=== PATIENT | female | born 1960 | race Caucasian/White ===

== ENCOUNTER → 2016-12-03 | Outpatient (CLI) | payer BC ==
--- NOTE | 2016-12-03 08:12 | REPMRS ---
Patient History The patient states she has not had a clinical breast exam in over a year. Family history of breast cancer in maternal aunt under age 50. Digital Mammo Screening Bilat: December 03, 2016 - Exam #: [id number] Bilateral CC and MLO view(s) were taken. Technologist: Marleny Reyna, Technologist No prior studies available for comparison. FINDINGS: There are scattered fibroglandular densities. There is no evidence of dominant mass, architectural distortion, or clustered microcalcification typical of malignancy. ASSESSMENT: BI-RADS/ACR category 1 mammogram. Negative. Recommendation Routine screening mammogram of both breasts in 1 year (for women over age 40). This mammogram was interpreted with the aid of an FDA-approved computer-aided dectection system. Electronically Signed By: Phillip Shukla MD 12/03/16 0811
[2016-12-03 08:22] LABS: ALBUMIN 3.7 GM/DL (3.2-5.2); ALBUMIN/GLOBULIN RATIO 0.93 (1.00-1.93); ALKALINE PHOSPHATASE 100 U/L (45-117); ALT/SGPT 22 U/L (12-78); ANION GAP 6 MEQ/L (8-16); AST/SGOT 14 U/L (15-37); BILIRUBIN,TOTAL 0.3 MG/DL (0.2-1.0); BLOOD UREA NITROGEN 23 MG/DL (7-18); CALCIUM LEVEL 9.1 MG/DL (8.5-10.1); CARBON DIOXIDE LEVEL 29 MEQ/L (21-32); CHLORIDE LEVEL 105 MEQ/L (98-107); CHOLESTEROL LEVEL 244 MG/DL (<200); CREATININE FOR GFR 0.84 MG/DL (0.55-1.02); GLOMERULAR FILTRATION RATE > 60.0 (>51); GLUCOSE, FASTING 86 MG/DL (70-105); POTASSIUM SERUM 4.5 MEQ/L (3.5-5.1); SODIUM LEVEL 140 MEQ/L (136-145); TOTAL PROTEIN 7.7 GM/DL (6.4-8.2); TRIGLYCERIDES LEVEL 93 MG/DL (<150)
== END ==
LOC: M RAD 07:35
PROVIDERS: ATTEND Family Medicine Addiction Medicine
DX: Z12.31 Encounter for screening mammogram for malignant neoplasm of breast (principal); I10 Essential (primary) hypertension
CPT/HCPCS: 36415; 80053; 80061; 83036; G0202

== ENCOUNTER 2016-12-24 15:07 | Emergency (ER) | payer OTHER, BC ==
[~2016-12-24] VITALS: Ht 157.5 cm; Wt 98.4 kg
[2016-12-24] MEDS ORDERED: MELO15TA4 PO (15:19)
[2016-12-24] MEDS ORDERED: CYCL10TA PO (15:19)
[2016-12-24] MEDS ORDERED: LISI-538 (15:19)
[2016-12-24] MEDS ORDERED: XANA0.25 PO (15:19)
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
[2016-12-24] MEDS ORDERED: PERCOCET 5MG/325MG TAB PO ONE (17:45)
[2016-12-24] MEDS ORDERED: LISINOPRIL 20 MG TAB PO ONE (18:15)
[2016-12-24 18:46] VITALS: BP 162/104
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
[2016-12-24] MEDS ORDERED: OXYCODONE/APAP 5MG/325MG(BULK FOR ED) 1 TABLET PO ONE (19:45)
[2016-12-24 19:50] VITALS: BP 121/63
[2016-12-24] MEDS ORDERED: PERC5TAB6 PO (19:55)
--- NOTE | 2016-12-25 16:57 | ED PDOC ---
Post-Departure Follow-Up michael cespedes faxed formal report of ct ls spine for fu Raul John MD Dec 25, 2016 16:57
== END 2016-12-24 20:15 | disposition home or self-care (01) ==
LOC: M ED 16:32
DX: S80.02XA Contusion of left knee, initial encounter (principal); V49.50XA Passenger injured in collision with unspecified motor vehicles in traffic accident, initial encounter; Y92.410 Unspecified street and highway as the place of occurrence of the external cause; Y93.89 Activity, other specified; Y99.9 Unspecified external cause status; M51.37 Other intervertebral disc degeneration, lumbosacral region; M25.762 Osteophyte, left knee; I10 Essential (primary) hypertension; R01.1 Cardiac murmur, unspecified; E78.5 Hyperlipidemia, unspecified; G47.30 Sleep apnea, unspecified; G40.909 Epilepsy, unspecified, not intractable, without status epilepticus; Z79.899 Other long term (current) drug therapy

== ENCOUNTER → 2017-01-23 | Outpatient (CLI) | payer OTHER, BC ==
[~2017-01-23] MED LIST: CYCL10TA PO; LISI-538; MELO15TA4 PO; PERC5TAB12 PO; XANA0.25 PO
--- NOTE | 2017-01-23 12:27 | REP ---
CERVICAL SPINE, THREE VIEWS: HISTORY: Cervicalgia. There is no acute fracture. The C3-4 through C6-7 intervertebral discs are decreased in height consistent with disc degeneration. Osteophytes are present on C3 through C7. There are 2 mm of anterior subluxation of C2 on C3 through C4 on C5. IMPRESSION: Degenerative change as described above. Signed by Kobe Ragsdale MD 01/23/2017 12:49 P
== END ==
LOC: M RAD 11:15
PROVIDERS: ATTEND Family Medicine Addiction Medicine
DX: M54.2 Cervicalgia (principal); M50.30 Other cervical disc degeneration, unspecified cervical region

== ENCOUNTER → 2017-03-21 | Outpatient (CLI) | payer OTHER, BC ==
--- NOTE | 2017-03-21 17:24 | REP ---
MRI CERVICAL SPINE WITHOUT CONTRAST: HISTORY: Neck pain. A disc bulge is present at the C3-4 level. There is minimal effacement of the thecal sac without spinal cord compression. Uncinate process hypertrophy is present on the right. This produces mild narrowing of the right C3 neural foramen. The left C3 neural foramen is patent. A disc bulge with associated osteophyte formation is present at the C4-5 level. There is moderate effacement of the thecal sac without spinal cord compression. Bilateral uncinate process hypertrophy is present. This produces moderate narrowing of the C4 neural foramina. A disc bulge with associated osteophyte formation is present at the C5-6 level. There is moderate effacement of the thecal sac without spinal cord compression. Bilateral uncinate process hypertrophy is present. This produces moderate narrowing of the C5 neural foramina. A disc bulge with associated osteophyte formation is present at the C6-7 level. There is moderate effacement of the thecal sac without spinal cord compression. Bilateral uncinate process hypertrophy is present. This produces moderate narrowing of the C6 neural foramina. A disc bulge is present at the C7-T1 level. There is minimal effacement of the thecal sac without spinal cord compression. Uncinate process hypertrophy is present on the left. This produces minimal narrowing of the left C7 neural foramen. The right C7 neural foramen is patent. Disc bulges are present at the C2-3 and T3-4 levels. There is minimal effacement of the thecal sac without spinal cord compression. The neural foramina are patent on sagittal images. There is no other disc bulge or herniation. The remaining neural foramina are patent. The spinal cord is normal in signal intensity. The C4-5 through C6-7 intervertebral discs are decreased in height consistent with disc degeneration. Increased signal intensity on T2-weighted images is present in the endplates of the C4 through C7 vertebral bodies. This represents degenerative change. IMPRESSION: There is cervical spondylosis at the C3-4 through C7-T1 levels without spinal cord compression. Signed by Kobe Ragsdale MD 03/25/2017 08:10 A
--- NOTE | 2017-03-21 17:33 | REP ---
MRI LUMBAR SPINE WITHOUT CONTRAST: HISTORY: Back pain. COMPARISON: 08/14/2015 Decreased signal intensity on T2-weighted images is present in the L2-3 through L5-S1 intervertebral discs. The L3-4 through L5-S1 intervertebral discs are decreased in height. These findings are consistent with disc degeneration. There is no disc bulge or herniation at the L1-2 level. The L1 nerves exit the neural foramina without compression. A diffuse disc bulge is present at the L2-3 level. There is minimal compression of the thecal sac. The L2 nerves exit the neural foramina without compression. A diffuse disc bulge and small central disc protrusion are present at the L3-4 level. There is hypertrophy of the ligamenta flava and posterior articulating facets. These findings produce mild central canal stenosis. The L3 nerves exit the neural foramina without compression. A diffuse disc bulge is present at the L4-5 level. There is hypertrophy of the ligamenta flava and posterior articulating facets. These findings produce minimal central canal stenosis. The L4 nerves exit the neural foramina without compression. A diffuse disc bulge is present at the L5-S1 level. This abuts the S1 nerves. There is no thecal sac compression. There is hypertrophy of the posterior articulating facets. The L5 nerves exit the neural foramina without compression. The conus medullaris is normal in appearance terminating at the level of the L1-2 intervertebral disc. A hemangioma is present in the L2 vertebral body. Increased signal intensity on T2-weighted images is present in the endplates of the L5 and S1 vertebral bodies. This represents degenerative change. IMPRESSION: 1. Diffuse disc bulge at the L2-3 level with minimal thecal sac compression. This is a new finding. 2. Mild central canal stenosis at the L3-4 level secondary to disc bulge, disc protrusion, ligamentous and facet hypertrophy. There has been progression of the canal stenosis. 3. Minimal central canal stenosis at the L4-5 level secondary to disc bulge, ligamentous and facet hypertrophy. 4. Diffuse disc bulge at the L5-S1 level. This abuts the S1 nerves. There is no other significant change. Signed by Kobe Ragsdale MD 03/25/2017 08:11 A
== END ==
LOC: M RAD 10:01
PROVIDERS: ATTEND Family Medicine Addiction Medicine
DX: M51.26 Other intervertebral disc displacement, lumbar region (principal); M48.06 Spinal stenosis, lumbar region; M47.812 Spondylosis without myelopathy or radiculopathy, cervical region; M50.21 Other cervical disc displacement, high cervical region; M51.24 Other intervertebral disc displacement, thoracic region

== ENCOUNTER → 2017-04-18 | Outpatient (CLI) | payer OTHER ==
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
== END ==
LOC: M PAIN 13:15
PROVIDERS: ATTEND Nurse Practitioner Family
DX: G89.29 Other chronic pain (principal); M54.2 Cervicalgia; M79.1 Myalgia; E78.00 Pure hypercholesterolemia, unspecified; I10 Essential (primary) hypertension; G43.909 Migraine, unspecified, not intractable, without status migrainosus; F32.9 Major depressive disorder, single episode, unspecified; F41.9 Anxiety disorder, unspecified; G47.30 Sleep apnea, unspecified; Z79.899 Other long term (current) drug therapy

== ENCOUNTER → 2017-05-12 | Outpatient (CLI) | payer OTHER ==
[~2017-05-12] MED LIST changes: +BUPIVACAINE HCL 0.25% 10 ML VIAL As Ordered ONE; +BUPIVACAINE HCL 0.25% 30 ML VIAL As Ordered ONE; +TRIAMCINOLONE ACETONIDE SUSP 40 MG/ML VIAL (J3301) As Ordered ONE; +diazePAM 5 MG TAB As Ordered ONE; +oxyCODONE 5MG TAB As Ordered ONE
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
== END ==
LOC: M PAIN 14:30
PROVIDERS: ATTEND Anesthesiology
DX: G89.29 Other chronic pain (principal); M54.2 Cervicalgia; M54.5 Low back pain; M79.1 Myalgia; E78.00 Pure hypercholesterolemia, unspecified; I10 Essential (primary) hypertension; F32.9 Major depressive disorder, single episode, unspecified; F41.9 Anxiety disorder, unspecified; G47.30 Sleep apnea, unspecified; Z79.899 Other long term (current) drug therapy
CPT/HCPCS: 20553; J3301

== ENCOUNTER → 2017-05-28 | Outpatient (CLI) | payer OTHER ==
[~2017-05-28] MED LIST changes: -BUPIVACAINE HCL 0.25% 10 ML VIAL As Ordered ONE; -BUPIVACAINE HCL 0.25% 30 ML VIAL As Ordered ONE; -TRIAMCINOLONE ACETONIDE SUSP 40 MG/ML VIAL (J3301) As Ordered ONE; -diazePAM 5 MG TAB As Ordered ONE; -oxyCODONE 5MG TAB As Ordered ONE
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
== END ==
LOC: M PAIN 15:15
PROVIDERS: ATTEND Nurse Practitioner Family
DX: M79.1 Myalgia (principal); M54.2 Cervicalgia; I10 Essential (primary) hypertension; E78.00 Pure hypercholesterolemia, unspecified; Z79.899 Other long term (current) drug therapy

== ENCOUNTER → 2017-06-19 | Outpatient (CLI) | payer OTHER ==
[~2017-06-19] MED LIST changes: +BUPIVACAINE HCL 0.25% 10 ML VIAL As Ordered ONE; +BUPIVACAINE HCL 0.25% 30 ML VIAL As Ordered ONE; +TRIAMCINOLONE ACETONIDE SUSP 40 MG/ML VIAL (J3301) As Ordered ONE; +diazePAM 5 MG TAB As Ordered ONE; +oxyCODONE 5MG TAB As Ordered ONE
--- NOTE | 2017-07-02 00:26 | ECWPNPC ---
PATIENT NAME: ALVARO GARCIA : 1960 GENDER: FEMALE VISIT DATE: 06/19/2017 DISCHARGE DATE: 06/19/17 1504 VISIT LOCKED DATE TIME: PHYSICIAN: JAZZMINE CASTILLO RESOURCE: JAZZMINE CASTILLO REASON FOR APPOINTMENT 1. NO FAULT, TPI NECK/LEFT HISTORY OF PRESENT ILLNESS HISTORY OF PRESENT ILLNESS: PAIN THE PATIENT DESCRIBES THE PAIN... FALL RISK SCREENING: SCREENING :NO FALLS IN THE PAST YEAR CURRENT MEDICATIONS TAKING FLEXERIL 10 MG ORALLY TWICE DAILY NEEDED, NOTES: > 1 MONTH AGO TAKING MELOXICAM 15 MG TABLET 1 TABLET ORALLY ONCE A DAY, NOTES: 06/19/17 0800 TAKING XANAX 0.25 MG TABLET 1 TABLET ORALLY THREE TIMES DAILY NEEDED, NOTES: > 1 MONTH AGO TAKING BUTALBITAL-ACETAMINOPHEN 50-325 MG TABLET 1 TABLET NEEDED ORALLY EVERY 4 HRS, NOTES: > 3 MONTHS TAKING SIMVASTATIN 20 MG TABLET 1 TABLET ORALLY ONCE A DAY, NOTES: 06/19/17 0800 TAKING LISINOPRIL-HYDROCHLOROTHIAZIDE 20-25 MG TABLET 1 TABLET ORALLY ONCE A DAY, NOTES: 06/19/17 0800 MEDICATION LIST REVIEWED AND RECONCILED WITH THE PATIENT PAST MEDICAL HISTORY ARTHRITIS BACK PAIN HIGH CHOLESTEROL HTN MIGRAINES DEPRESSION ANXIETY SLEEP APNEA, USES CPAP ALLERGIES N.K.D.A. REVIEW OF SYSTEMS REVIEWED BY: PROVIDER: . CONSTITUTIONAL: ANY CHANGE IN YOUR MEDICAL CONDITION? NO . CHILLS NO . FEVER NO . INFECTION: DO YOU HAVE NEW INFECTIONS? NO . DO YOU HAVE HISTORY OF MRSA? NO . MUSCULOSKELETAL: ANY NEW PATTERNS OF PAIN OR NUMBNESS? NO . GASTROENTEROLOGY: ANY NEW CHANGE IN BOWEL CONTROL? NO . GENITOURINARY: ANY NEW CHANGE IN BLADDER CONTROL? NO . IS THERE A CHANCE YOU COULD BE ? NO . HEMATOLOGY/LYMPH: DO YOU TAKE ANY BLOOD THINNERS? (FOR EXAMPLE- COUMADIN, PLAVIX, AGGRENOX, PLATEL, PRADAXA, OR XARELTO) NO . WHEN WAS YOUR LAST DOSE? DATE: TIME: . NEUROLOGY: HAVE YOU FALLEN IN THE PAST 6 MONTHS? NO . ANY NEW EXTREMITY NUMBNESS OR WEAKNESS? NO . CARDIOLOGY: DO YOU HAVE A PACEMAKER OR DEFIBRILLATOR? NO . RESPIRATORY: HAVE YOU BEEN SICK IN THE PAST WEEK? NO . FEVER NO . FLU LIKE SYMPTOMS? NO . COUGH NO . INTEGUMENTARY: DO YOU HAVE ANY RASHES OR OPEN SORES? NO . ALLERGIC/IMMUNO: ARE YOU ALLERGIC TO SHELLFISH OR IV DYE? NO . ANY NEW ALLERGIES? NO . PSYCHIATRIC: DO YOU HAVE THOUGHTS OF HURTING YOURSELF OR SOMEONE ELSE? NO . ARE YOU ABUSED, NEGLECTED, OR IN AN UNSAFE ENVIRONMENT? NO . ENDOCRINOLOGY: ARE YOU DIABETIC? NO . OTHER: DO YOU NEED ANY PRESCRIPTIONS? NO . IF YES, PLEASE LIST: ____ . ANY NEW PROBLEMS WITH YOUR MEDICATIONS? NO . WHEN DID YOU LAST EAT? ____06/19/17 1200 CHICKEN . WHEN DID YOU LAST DRINK? ____06/19/17 1200 . WHAT DID YOU LAST DRINK? ____CLEAR SODA . NAME OF PERSON DRIVING YOU HOME? ____RALPH . DO YOU HAVE ANY OTHER QUESTIONS OR CONCERNS NO . VITAL SIGNS WT 227 LBS, HT 62 IN, BMI 41.51 INDEX, BP 114/75 MM HG, HR 73 /MIN, RR 16 /MIN, TEMP 97.9 F, OXYGEN SAT % 95%, SAFE IN ENV? (Y/N) YES, NA INITIALS ME 13:56, REVIEWED BY: ASSESSMENTS MYALGIA - M79.1 (PRIMARY) PROCEDURES PN TRIGGER POINT INJECTION WITH STEROIDS PRE PROCEDURE DIAGNOSIS 1. MYALGIA 2. PAIN AT BILATERAL NECK AREA AND BILATERAL LOWER BACK AREA POST PROCEDURE DIAGNOSIS 1. MYALGIA 2. PAIN AT BILATERAL NECK AREA AND BILATERAL LOWER BACK AREA PROCEDURE TRIGGER POINT INJECTION AT BILATERAL NECK AREA AND BILATERAL LOWER BACK AREA SURGEON DR. JAZZMINE CASTILLO GRAIN MERCHANDISER NONE ANESTHESIA LOCAL PRE PROCEDURE NOTE THE PATIENT HAS A HISTORY OF CHRONIC PAIN AT THE RIGHT AND LEFT NECK AREA AND RIGHT AND LEFT LOWER BACK AREA. I EVALUATE THE PATIENT AND REVIEWED THE CHART. THERE IS EVIDENCE OF BANDS OF TISSUE WITH RESTRICTION OF MOVEMENT AND PRESENCE OF TRIGGER POINT AT THE AFFECTED AREA. I WENT OVER THE RISKS, ALTERNATIVES, AND BENEFITS ASSOCIATED WITH THIS PROCEDURE. THE PATIENT WOULD LIKE TO PROCEED AND GIVE CONSENT TO PERFORMED THE PROCEDURE. THE PATIENT DENIES UNEXPLAINABLE WEIGHT LOSS, FEVER, CHILLS, OR NEW CHANGES IN URINARY OR BOWEL CONTROL DESCRIPTION OF PROCEDURE THE PATIENT WAS BROUGHT TO THE PROCEDURE ROOM AND PLACED IN THE SITTING POSITION. THE AREA WAS CLEANED WITH ALCOHOL. THE PROCEDURE WAS DONE USING ASEPTIC STERILE TECHNIQUE. I CHECKED LATERALITY AND THE LEVEL WHERE THE PROCEDURE WAS GOING TO BE PERFORMED WITH THE PATIENT AND THE SUPPORTING STAFF AT THE MOMENT OF THE TIME OUT IN THE PROCEDURE ROOM. USING A 25-GAUGE NEEDLE, TRIGGER POINTS WERE INJECTED AT THE RIGHT AND LEFT NECK AREA AND RIGHT AND LEFT LOWER BACK AREA WITH A TOTAL OF 40 ML OF BUPIVACAINE 0.25% AND KENALOG 40 MG. THERE WAS NO EVIDENCE OF BLOOD, PARESTHESIA OR CEREBROSPINAL FLUID DURING THE PROCEDURE. THE PATIENT WAS SENT TO THE RECOVERY ROOM. THE PATIENT WAS MOVING THE EXTREMITIES AND DOING WELL. THERE WAS NO COMPLICATION DURING THE PROCEDURE POST PROCEDURE NOTE THE PATIENT WILL BE SEEN IN A FOLLOW UP IN THE NEXT FEW WEEKS. INSTRUCTIONS WERE GIVEN, QUESTIONS WERE ANSWERED, AND THE PATIENT EXPRESSED UNDERSTANDING AND AGREES WITH THE PLAN. I, ROBERT CHA, DOCUMENTED THE ABOVE INFORMATION ACTING A SCRIBE FOR DR. CASTILLO. I HAVE REVIEWED THE ABOVE DOCUMENT, WRITTEN BY ROBERT ROMEO AND I VERIFY THAT IT IS ACCURATE. PROCEDURE CODES 61019 INJECT TRIGGER POINTS 3/> DISPOSITION & COMMUNICATION FOLLOW UP 3 WEEKS ELECTRONICALLY SIGNED BY JAZZMINE CASTILLO MD ON 07/01/2017 AT 09:48 PM EST DISCLAIMER : THIS IS A VISIT SUMMARY EXTRACTED FROM THE [employer] CHART. IT IS NOT A COPY OF THE [employer] PROGRESS NOTE. KAMRAN
== END ==
LOC: M PAIN 13:45
PROVIDERS: ATTEND Anesthesiology
DX: G89.29 Other chronic pain (principal); M54.2 Cervicalgia; M54.5 Low back pain; M79.1 Myalgia; I10 Essential (primary) hypertension; G43.909 Migraine, unspecified, not intractable, without status migrainosus; F32.9 Major depressive disorder, single episode, unspecified; F41.9 Anxiety disorder, unspecified; G47.30 Sleep apnea, unspecified; Z79.899 Other long term (current) drug therapy
CPT/HCPCS: 20553; J3301

== ENCOUNTER → 2017-07-03 | Outpatient (REF) | payer BC ==
[~2017-07-03] MED LIST changes: -BUPIVACAINE HCL 0.25% 10 ML VIAL As Ordered ONE; -BUPIVACAINE HCL 0.25% 30 ML VIAL As Ordered ONE; -TRIAMCINOLONE ACETONIDE SUSP 40 MG/ML VIAL (J3301) As Ordered ONE; -diazePAM 5 MG TAB As Ordered ONE; -oxyCODONE 5MG TAB As Ordered ONE
[2017-07-03 15:05] LABS: ALBUMIN 3.5 GM/DL (3.2-5.2); ALBUMIN/GLOBULIN RATIO 0.92 (1.00-1.93); ALKALINE PHOSPHATASE 92 U/L (45-117); ALT/SGPT 24 U/L (12-78); ANION GAP 6 MEQ/L (8-16); AST/SGOT 16 U/L (7-37); BILIRUBIN,TOTAL 0.5 MG/DL (0.2-1.0); BLOOD UREA NITROGEN 20 MG/DL (7-18); CALCIUM LEVEL 8.7 MG/DL (8.5-10.1); CARBON DIOXIDE LEVEL 29 MEQ/L (21-32); CHLORIDE LEVEL 105 MEQ/L (98-107); CHOLESTEROL LEVEL 187 MG/DL (<200); CREATININE FOR GFR 0.71 MG/DL (0.55-1.02); GLOMERULAR FILTRATION RATE > 60.0 (>51); GLUCOSE, FASTING 81 MG/DL (70-105); SODIUM LEVEL 140 MEQ/L (136-145); TOTAL PROTEIN 7.3 GM/DL (6.4-8.2); TRIGLYCERIDES LEVEL 84 MG/DL (<150)
== END ==
LOC: M LAB REF 14:02
PROVIDERS: ATTEND Family Medicine Addiction Medicine
DX: E78.5 Hyperlipidemia, unspecified (principal); I10 Essential (primary) hypertension

== ENCOUNTER → 2017-07-17 | Outpatient (REF) | payer BC ==
[2017-07-17 14:11] LABS: FREE T4 1.04 NG/DL (0.76-1.46)
== END ==
LOC: M LAB REF 13:11
DX: E03.8 Other specified hypothyroidism (principal)
CPT/HCPCS: 84443

== ENCOUNTER → 2017-08-04 | Outpatient (CLI) | payer OTHER | LOC: M PAIN 14:15 | DX: M47.812 Spondylosis without myelopathy or radiculopathy, cervical region (principal); M79.1 Myalgia; M19.90 Unspecified osteoarthritis, unspecified site; E78.00 Pure hypercholesterolemia, unspecified; I10 Essential (primary) hypertension; G43.909 Migraine, unspecified, not intractable, without status migrainosus; F32.9 Major depressive disorder, single episode, unspecified; F41.9 Anxiety disorder, unspecified; G47.30 Sleep apnea, unspecified; Z79.899 Other long term (current) drug therapy | CPT/HCPCS: G0463 ==

== ENCOUNTER → 2017-09-01 | Outpatient (CLI) | payer OTHER ==
[~2017-09-01] MED LIST changes: -CYCL10TA PO; +ISOVUE-M 300 61% 15ML VIAL (Q9967) As Ordered; +LIDOCAINE 1% SDV INJ 30 ML VIAL As Ordered; -LISI-538; -MELO15TA4 PO; -PERC5TAB12 PO; -XANA0.25 PO; +diazePAM 5 MG TAB As Ordered; +methylPREDNISolone SUSP 40 MG/ML (DEPO-medrol) VIAL (J1030) As Ordered; +oxyCODONE 5MG TAB As Ordered
== END ==
LOC: M PAIN 10:15
DX: G89.29 Other chronic pain (principal); M50.13 Cervical disc disorder with radiculopathy, cervicothoracic region; I10 Essential (primary) hypertension; F41.9 Anxiety disorder, unspecified; F32.9 Major depressive disorder, single episode, unspecified; Z79.899 Other long term (current) drug therapy
CPT/HCPCS: J1030

== ENCOUNTER 2017-10-31 16:53 | Emergency (ER) | payer BC, OTHER ==
[2017-10-31] MEDS: NS 1,000 ML IV (19:00)
[2017-10-31 19:45] LABS: BASO # 0.1 10^3/uL (0.0-0.2); BASO % 0.5 % (0.0-1.0); EOS # 0.2 10^3/uL (0.0-0.50); EOS % 1.2 % (0.0-3.0); HEMOGLOBIN 12.8 g/dl (12.0-15.5); IMMATURE GRANULOCYTE % 0.6 % (0-3.0); LYMPH # 3.2 10^3/uL (1.5-4.5); LYMPH % 18.9 % (24.0-44.0); MEAN CORPUSCULAR HEMOGLOBIN 30.5 pg (27.0-33.0); MEAN CORPUSCULAR HGB CONC 33.7 g/dl (32.0-36.5); MEAN CORPUSCULAR VOLUME 90.5 fl (80.0-96.0); MONO # 1.6 10^3/uL (0.0-0.8); MONO % 9.5 % (0.0-5.0); NEUTROPHILS # 11.9 10^3/uL (1.8-7.7); NEUTROPHILS % 69.3 % (36.0-66.0); PLATELET COUNT, AUTOMATED 473 10^3/uL (150-450); RED CELL DISTRIBUTION WIDTH 13.2 % (11.5-14.5); WHITE BLOOD COUNT 17.1 10^3/uL (4.0-10.0)
[2017-10-31 19:50] LABS: KETONE, URINE AUTO RFX NEGATIVE (NEGATIVE); MUCUS, URINE RFX SMALL (NEGATIVE); NITRITE, URINE AUTO RFX NEGATIVE (NEGATIVE); RBC, URINE AUTO RFX 8 /HPF (0-3); SPECIFIC GRAVITY UR AUTO RFX 1.014 (1.002-1.035); SQUAM EPITHELIAL CELL UR AURFX 2 /HPF (0-6)
[2017-10-31 19:56] LABS: INR 1.14; PROTHROMBIN TIME 14.8 SECONDS (12.4-14.5)
[2017-10-31 20:08] LABS: LACTIC ACID SEPSIS PROTOCOL 1.1 MMOL/L (0.4-2.0)
[2017-10-31 20:08] LABS: LEUKOCYTE ESTERASE UR AUTO RFX 3+ (NEGATIVE); WBC, URINE AUTO RFX 83 /HPF (0-3)
[2017-10-31 20:11] LABS: ALBUMIN 3.4 GM/DL (3.2-5.2); ALBUMIN/GLOBULIN RATIO 0.76 (1.00-1.93); ALKALINE PHOSPHATASE 103 U/L (45-117); ALT/SGPT 25 U/L (12-78); AMYLASE 44 U/L (25-115); ANION GAP 7 MEQ/L (8-16); AST/SGOT 18 U/L (7-37); BILIRUBIN,DIRECT 0.2 MG/DL (0.0-0.2); BILIRUBIN,TOTAL 0.5 MG/DL (0.2-1.0); BLOOD UREA NITROGEN 15 MG/DL (7-18); CALCIUM LEVEL 8.9 MG/DL (8.5-10.1); CARBON DIOXIDE LEVEL 31 MEQ/L (21-32); CHLORIDE LEVEL 98 MEQ/L (98-107); CREATININE FOR GFR 0.89 MG/DL (0.55-1.30); GLOMERULAR FILTRATION RATE > 60.0 (>51); GLUCOSE, FASTING 111 MG/DL (70-100); LIPASE 243 U/L (73-393); POTASSIUM SERUM 3.1 MEQ/L (3.5-5.1); SODIUM LEVEL 136 MEQ/L (136-145); TOTAL PROTEIN 7.9 GM/DL (6.4-8.2)
[2017-10-31] MEDS: GASTROGRAFIN SOLUTION 30ML PO ×2 (20:55→21:30)
[2017-10-31] MEDS ORDERED: ISOVUE-370 76% 100ML VIAL (Q9967) As Ordered (22:09)
[2017-10-31] MEDS: BACTRIM 160MG/800MG DS TAB PO (23:00)
== END 2017-10-31 23:04 | disposition home or self-care (01) ==
LOC: M ED 16:53
DX: N39.0 Urinary tract infection, site not specified (principal); Z98.84 Bariatric surgery status; R51 Headache; E78.00 Pure hypercholesterolemia, unspecified; F41.9 Anxiety disorder, unspecified; Z79.899 Other long term (current) drug therapy
CPT/HCPCS: Q9963

== ENCOUNTER → 2017-11-06 | Outpatient (CLI) | payer BC ==
[2017-11-06 11:13] LABS: BASO # 0.1 10^3/uL (0.0-0.2); BASO % 0.8 % (0.0-1.0); EOS # 0.4 10^3/uL (0.0-0.50); EOS % 5.3 % (0.0-3.0); HEMATOCRIT 40.1 % (36.0-47.0); HEMOGLOBIN 13.3 g/dl (12.0-15.5); IMMATURE GRANULOCYTE % 0.6 % (0-3.0); LYMPH # 1.8 10^3/uL (1.5-4.5); LYMPH % 21.5 % (24.0-44.0); MEAN CORPUSCULAR HEMOGLOBIN 29.9 pg (27.0-33.0); MEAN CORPUSCULAR HGB CONC 33.2 g/dl (32.0-36.5); MEAN CORPUSCULAR VOLUME 90.1 fl (80.0-96.0); MONO # 0.5 10^3/uL (0.0-0.8); MONO % 5.9 % (0.0-5.0); NEUTROPHILS # 5.4 10^3/uL (1.8-7.7); NEUTROPHILS % 65.9 % (36.0-66.0); PLATELET COUNT, AUTOMATED 554 10^3/uL (150-450); RED BLOOD COUNT 4.45 10^6/uL (4.00-5.40); RED CELL DISTRIBUTION WIDTH 13.1 % (11.5-14.5); WHITE BLOOD COUNT 8.3 10^3/uL (4.0-10.0)
[2017-11-06 11:13] LABS: HEMATOCRIT 40.1 % (36.0-47.0)
[2017-11-06 11:47] LABS: ALBUMIN 3.2 GM/DL (3.2-5.2); ALKALINE PHOSPHATASE 108 U/L (45-117); ALT/SGPT 30 U/L (12-78); ANION GAP 12 MEQ/L (8-16); AST/SGOT 20 U/L (7-37); BILIRUBIN,TOTAL 0.3 MG/DL (0.2-1.0); BLOOD UREA NITROGEN 26 MG/DL (7-18); CALCIUM LEVEL 9.2 MG/DL (8.5-10.1); CARBON DIOXIDE LEVEL 23 MEQ/L (21-32); CHLORIDE LEVEL 102 MEQ/L (98-107); CREATININE FOR GFR 1.09 MG/DL (0.55-1.30); FERRITIN 556 NG/ML (8-252); GLOMERULAR FILTRATION RATE 55.1 (>51); GLUCOSE, FASTING 96 MG/DL (70-100); IRON (FE) 51 UG/DL (50-170); MAGNESIUM LEVEL 2.2 MG/DL (1.8-2.4); PHOSPHORUS LEVEL 3.2 MG/DL (2.5-4.9); POTASSIUM SERUM 4.1 MEQ/L (3.5-5.1); SODIUM LEVEL 137 MEQ/L (136-145); TOTAL IRON BINDING CAPACITY 196 UG/DL (250-450); TOTAL PROTEIN 7.8 GM/DL (6.4-8.2)
[2017-11-06 12:27] LABS: ESTIMATED AVERAGE GLUCOSE 111 MG/DL (60-110); HEMOGLOBIN A1c 5.5 %
[2017-11-07 08:48] LABS: TOTAL 25(OH) VITAMIN D 25.2 NG/ML (30.0-100.0); VITAMIN B12 LEVEL 1104 PG/ML (247-911)
[2017-11-07 10:47] LABS: PRETREATED FOLATE FOR RBCFOL 17.2 NG/ML; RBC FOLATE 900.7 NG/ML (280-791)
[2017-11-10 14:12] LABS: VITAMIN B1 LEVEL WHOLE BLOOD 125.2 nmol/L (66.5-200.0)
== END ==
LOC: M LAB 10:06
DX: E55.9 Vitamin D deficiency, unspecified (principal); K91.2 Postsurgical malabsorption, not elsewhere classified; Z98.84 Bariatric surgery status
CPT/HCPCS: 83550

== ENCOUNTER → 2017-12-22 | Outpatient (CLI) | payer OTHER | LOC: M PAIN 15:15 | DX: M47.812 Spondylosis without myelopathy or radiculopathy, cervical region (principal); M79.1 Myalgia; M19.90 Unspecified osteoarthritis, unspecified site; E78.00 Pure hypercholesterolemia, unspecified; I10 Essential (primary) hypertension; G43.909 Migraine, unspecified, not intractable, without status migrainosus; F32.9 Major depressive disorder, single episode, unspecified; F41.9 Anxiety disorder, unspecified; G47.30 Sleep apnea, unspecified; Z79.899 Other long term (current) drug therapy; Z98.84 Bariatric surgery status | CPT/HCPCS: G0463 ==

== ENCOUNTER → 2018-03-02 | Outpatient (CLI) | payer BC | LOC: M PAIN 13:15 | DX: Z53.29 Procedure and treatment not carried out because of patient's decision for other reasons (principal) ==

== ENCOUNTER → 2018-03-19 | Outpatient (CLI) | payer BC | LOC: M PAIN 15:00 | DX: M54.2 Cervicalgia (principal); M79.1 Myalgia; M19.90 Unspecified osteoarthritis, unspecified site; E78.00 Pure hypercholesterolemia, unspecified; I10 Essential (primary) hypertension; G43.909 Migraine, unspecified, not intractable, without status migrainosus; F32.9 Major depressive disorder, single episode, unspecified; F41.9 Anxiety disorder, unspecified; G47.30 Sleep apnea, unspecified; Z79.899 Other long term (current) drug therapy; Z98.84 Bariatric surgery status | CPT/HCPCS: G0463 ==

== ENCOUNTER → 2018-04-06 | Outpatient (CLI) | payer BC ==
[~2018-04-06] MED LIST changes: +BUPIVACAINE HCL 0.25% 10 ML VIAL As Ordered; +BUPIVACAINE HCL 0.25% 30 ML VIAL As Ordered; -ISOVUE-M 300 61% 15ML VIAL (Q9967) As Ordered; -LIDOCAINE 1% SDV INJ 30 ML VIAL As Ordered; +TRIAMCINOLONE ACETONIDE SUSP 40 MG/ML VIAL (J3301) As Ordered; -methylPREDNISolone SUSP 40 MG/ML (DEPO-medrol) VIAL (J1030) As Ordered
== END ==
LOC: M PAIN 13:45
DX: M79.1 Myalgia (principal); E78.00 Pure hypercholesterolemia, unspecified; I10 Essential (primary) hypertension; G43.909 Migraine, unspecified, not intractable, without status migrainosus; F32.9 Major depressive disorder, single episode, unspecified; F41.9 Anxiety disorder, unspecified; G47.30 Sleep apnea, unspecified; Z79.891 Long term (current) use of opiate analgesic; Z79.899 Other long term (current) drug therapy; Z90.710 Acquired absence of both cervix and uterus; Z98.84 Bariatric surgery status
CPT/HCPCS: J3301

== ENCOUNTER → 2018-04-23 | Outpatient (CLI) | payer BC | LOC: M SLEEP HO 15:00 | DX: G47.33 Obstructive sleep apnea (adult) (pediatric) (principal) | CPT/HCPCS: G0399 ==

== ENCOUNTER → 2018-05-14 | Outpatient (CLI) | payer BC | LOC: M PAIN 09:30 | DX: M54.2 Cervicalgia (principal); M79.18 Myalgia, other site; M19.90 Unspecified osteoarthritis, unspecified site; E78.00 Pure hypercholesterolemia, unspecified; I10 Essential (primary) hypertension; G43.909 Migraine, unspecified, not intractable, without status migrainosus; F31.9 Bipolar disorder, unspecified; F41.9 Anxiety disorder, unspecified; G47.30 Sleep apnea, unspecified; Z79.899 Other long term (current) drug therapy; Z98.84 Bariatric surgery status | CPT/HCPCS: G0463 ==

== ENCOUNTER → 2018-05-20 | Outpatient (CLI) | payer BC ==
[2018-05-20 18:34] LABS: BASO # 0.1 10^3/uL (0.0-0.2); BASO % 0.6 % (0.0-1.0); EOS # 0.3 10^3/uL (0.0-0.50); EOS % 2.8 % (0.0-3.0); HEMATOCRIT 39.5 % (36.0-47.0); IMMATURE GRANULOCYTE % 0.5 % (0-3.0); LYMPH % 19.6 % (24.0-44.0); MEAN CORPUSCULAR HEMOGLOBIN 30.7 pg (27.0-33.0); MEAN CORPUSCULAR HGB CONC 32.9 g/dl (32.0-36.5); MEAN CORPUSCULAR VOLUME 93.2 fl (80.0-96.0); MONO # 0.7 10^3/uL (0.0-0.8); MONO % 6.5 % (0.0-5.0); NEUTROPHILS # 7.3 10^3/uL (1.8-7.7); PLATELET COUNT, AUTOMATED 340 10^3/uL (150-450); RED BLOOD COUNT 4.24 10^6/uL (4.00-5.40); RED CELL DISTRIBUTION WIDTH 16.2 % (11.5-14.5); WHITE BLOOD COUNT 10.4 10^3/uL (4.0-10.0)
[2018-05-20 18:39] LABS: ALBUMIN 3.9 GM/DL (3.2-5.2); ALBUMIN/GLOBULIN RATIO 1.18 (1.00-1.93); ALKALINE PHOSPHATASE 90 U/L (45-117); ALT/SGPT 19 U/L (12-78); ANION GAP 6 MEQ/L (8-16); AST/SGOT 17 U/L (7-37); BILIRUBIN,TOTAL 0.4 MG/DL (0.2-1.0); BLOOD UREA NITROGEN 21 MG/DL (7-18); CALCIUM LEVEL 9.3 MG/DL (8.5-10.1); CARBON DIOXIDE LEVEL 30 MEQ/L (21-32); CHLORIDE LEVEL 104 MEQ/L (98-107); CREATININE FOR GFR 0.73 MG/DL (0.55-1.30); FERRITIN 167 NG/ML (8-252); GLOMERULAR FILTRATION RATE > 60.0 (>51); GLUCOSE, FASTING 101 MG/DL (70-100); IRON (FE) 86 UG/DL (50-170); MAGNESIUM LEVEL 1.9 MG/DL (1.8-2.4); PERCENT SATURATION 29.1 % (13.2-45.0); PHOSPHORUS LEVEL 3.5 MG/DL (2.5-4.9); POTASSIUM SERUM 4.1 MEQ/L (3.5-5.1); SODIUM LEVEL 140 MEQ/L (136-145); TOTAL IRON BINDING CAPACITY 296 UG/DL (250-450); TOTAL PROTEIN 7.2 GM/DL (6.4-8.2)
[2018-05-20 18:41] LABS: ESTIMATED AVERAGE GLUCOSE 103 MG/DL (60-110); HEMOGLOBIN A1c 5.2 %
[2018-05-20 18:45] LABS: TOTAL 25(OH) VITAMIN D 22.6 NG/ML (30.0-100.0)
[2018-05-20 18:49] LABS: HEMATOCRIT 39.5 % (36.0-47.0)
[2018-05-22 10:25] LABS: PRETREATED FOLATE FOR RBCFOL 13.3 NG/ML; RBC FOLATE 707.1 NG/ML (280-791)
== END ==
LOC: M SMT 14:31
DX: K91.2 Postsurgical malabsorption, not elsewhere classified (principal); Z98.84 Bariatric surgery status; E55.9 Vitamin D deficiency, unspecified
CPT/HCPCS: 83550

== ENCOUNTER → 2018-05-31 | Outpatient (CLI) | payer BC | LOC: M SLEEP 19:54 | DX: G47.33 Obstructive sleep apnea (adult) (pediatric) (principal) | CPT/HCPCS: 95811 ==

== ENCOUNTER → 2018-06-09 | Outpatient (CLI) | payer BC ==
[~2018-06-09] MED LIST changes: -BUPIVACAINE HCL 0.25% 10 ML VIAL As Ordered
== END ==
LOC: M PAIN 12:45
DX: M79.18 Myalgia, other site (principal); M19.90 Unspecified osteoarthritis, unspecified site; E78.00 Pure hypercholesterolemia, unspecified; I10 Essential (primary) hypertension; G43.909 Migraine, unspecified, not intractable, without status migrainosus; F32.9 Major depressive disorder, single episode, unspecified; F41.9 Anxiety disorder, unspecified; G47.30 Sleep apnea, unspecified; Z79.899 Other long term (current) drug therapy
CPT/HCPCS: J3301

== ENCOUNTER → 2018-06-22 | Outpatient (CLI) | payer BC | LOC: M PAIN 14:45 | DX: M47.812 Spondylosis without myelopathy or radiculopathy, cervical region (principal); I10 Essential (primary) hypertension; G43.909 Migraine, unspecified, not intractable, without status migrainosus; E78.00 Pure hypercholesterolemia, unspecified; M19.90 Unspecified osteoarthritis, unspecified site; F32.9 Major depressive disorder, single episode, unspecified; F41.9 Anxiety disorder, unspecified; G47.30 Sleep apnea, unspecified; Z79.899 Other long term (current) drug therapy; Z98.84 Bariatric surgery status | CPT/HCPCS: G0463 ==

== ENCOUNTER → 2018-07-27 | Outpatient (CLI) | payer BC ==
[~2018-07-27] MED LIST changes: +BACT800T5 PO; -BUPIVACAINE HCL 0.25% 30 ML VIAL As Ordered; +BUPIVACAINE HCL 0.25% 30 ML VIAL As Ordered ONE; +CYCL10TA PO; +ISOVUE-M 300 61% 15ML VIAL (Q9967) As Ordered ONE; +LIDOCAINE 1% SDV INJ 30 ML VIAL As Ordered ONE; +LISI-538; +MELO15TA28 PO; +MULT1TAB10 PO; +PERC5TAB12 PO; -TRIAMCINOLONE ACETONIDE SUSP 40 MG/ML VIAL (J3301) As Ordered; +TRIAMCINOLONE ACETONIDE SUSP 40 MG/ML VIAL (J3301) As Ordered ONE; +VITA500064 PO; +XANA0.25 PO; -diazePAM 5 MG TAB As Ordered; +diazePAM 5 MG TAB As Ordered ONE; -oxyCODONE 5MG TAB As Ordered; +oxyCODONE 5MG TAB As Ordered ONE
--- NOTE | 2018-07-27 12:50 | REP ---
LIMITED CERVICAL SPINE SERIES: Two views. HISTORY: Cervical spine injection procedure for pain. 17 seconds of fluoroscopy time is reported. FINDINGS: A sequence of two last image hold fluoroscopically obtained spot radiographs of the cervical spine document various needle positions and contrast injections associated with cervical facet injection procedure. Electronically Signed by Manohar Shukla MD 07/27/2018 07:26 P
--- NOTE | 2018-08-12 01:27 | ECWPNPC ---
PATIENT NAME: ALVARO GARCIA : 1960 GENDER: FEMALE VISIT DATE: 07/27/2018 DISCHARGE DATE: 07/27/18 1027 VISIT LOCKED DATE TIME: PHYSICIAN: JAZZMINE CASTILLO MD RESOURCE: JAZZMINE CASTILLO MD REASON FOR APPOINTMENT 1. C3/4-C4/5 CERVICAL THERAPEUTIC FACET BLOCK BILAT HISTORY OF PRESENT ILLNESS HISTORY OF PRESENT ILLNESS: PAIN THE PATIENT DESCRIBES THE PAIN... FALL RISK SCREENING: SCREENING :NO FALLS IN THE PAST YEAR CURRENT MEDICATIONS TAKING SYNTHROID 25 MCG TABLET 1 TABLET ON AN EMPTY STOMACH IN THE MORNING ORALLY ONCE A DAY, NOTES: 07/26/18 0800 TAKING FLEXERIL 10 MG ORALLY TWICE DAILY NEEDED, NOTES: 07/26/17 1900 TAKING XANAX 0.25 MG TABLET 1 TABLET ORALLY THREE TIMES DAILY NEEDED, NOTES: 07/27/18 0600 TAKING BUTALBITAL-ACETAMINOPHEN 50-325 MG TABLET 1 TABLET NEEDED ORALLY EVERY 4 HRS, NOTES: 07/27/18 0800 TAKING SIMVASTATIN 20 MG TABLET 1 TABLET ORALLY ONCE A DAY, NOTES: 07/26/18 0800 TAKING CALCIUM 250 MG TABLET ORALLY , NOTES: 07/26/17 0800 TAKING HYDROCODONE-ACETAMINOPHEN 5-325 MG TABLET 1 TABLET NEEDED ORALLY EVERY 6 HRS MDD=3, NOTES: NONE IN >2 WEEKS TAKING TRAMADOL HCL 50 MG TABLET 1 TABLET NEEDED ORALLY Q8H PRN MDD3 #45 TAB SHOULD LAST 30 DAYS, NOTES: NONE IN >2 WEEKS TAKING B-12 + FOLIC ACID 2500-400 MCG TABLET DISINTEGRATING ORALLY , NOTES: 07/26/17 0800 TAKING MULTI COMPLETE - CAPSULE ORALLY , NOTES: 07/26/17 0800 MEDICATION LIST REVIEWED AND RECONCILED WITH THE PATIENT PAST MEDICAL HISTORY ARTHRITIS BACK PAIN HIGH CHOLESTEROL HTN MIGRAINES DEPRESSION ANXIETY SLEEP APNEA, USES CPAP ALLERGIES N.K.D.A. SURGICAL HISTORY HYSTERECTOMY 2004 GASTRIC SLEEVE SURGERY 09/2017 FAMILY HISTORY FATHER: 81 YRS, DIAGNOSED WITH HYPERTENSION MOTHER: , DIAGNOSED WITH CANCER SIBLINGS: IMMUNE DISEASE IN SISTER 1 BROTHER(S) , 4 SISTER(S) - HEALTHY. 2DAUGHTER(S) . DAD THIS . SOCIAL HISTORY GENERAL: TOBACCO USE ARE YOU A:NONSMOKER RECREATIONAL DRUG USE DRUG USE?NO CAFFEINE CAFFEINE USE?YES HOW OFTEN AND HOW MUCH? 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 MARITAL STATUS: .. OTHERS AT HOME: SIBLING. PAIN CLINIC PFS, CLERGY, PUBLIC HEALTH REFERRALS PFS REFERRAL NEEDED?NO CLERGY REFERRAL NEEDED?NO PUBLIC HEALTH REFERRAL NEEDED?NO HAS THE PATIENT BEEN EDUCATED REGARDING HIS/HER PLAN OF CARE?YES HAS THE PATIENT BEEN EDUCATED REGARDING PAIN, THE RISK FOR PAIN, THE IMPORTANCE OF EFFECTIVE PAIN MANAGEMENT, AND THE PAIN ASSESSMENT PROCESS?YES ADVANCE DIRECTIVE ADVANCE DIRECTIVE DISCUSSED WITH PATIENT:YES EVELYN WHITMORE SISTER REVIEWED NL [id number] WITH PT 07/27/18 0902 BV. HOSPITALIZATION/MAJOR DIAGNOSTIC PROCEDURE SYNCOPAL EPISODES 2013 REVIEW OF SYSTEMS REVIEWED BY: PROVIDER: . CONSTITUTIONAL: ANY CHANGE IN YOUR MEDICAL CONDITION? NO . CHILLS NO . FEVER NO . INFECTION: DO YOU HAVE NEW INFECTIONS? NO . DO YOU HAVE HISTORY OF MRSA? NO . MUSCULOSKELETAL: ANY NEW PATTERNS OF PAIN OR NUMBNESS? NO . GASTROENTEROLOGY: ANY NEW CHANGE IN BOWEL CONTROL? NO . GENITOURINARY: ANY NEW CHANGE IN BLADDER CONTROL? NO . IS THERE A CHANCE YOU COULD BE ? NO . HEMATOLOGY/LYMPH: DO YOU TAKE ANY BLOOD THINNERS? (FOR EXAMPLE- COUMADIN, PLAVIX, AGGRENOX, PLATEL, PRADAXA, OR XARELTO) NO . WHEN WAS YOUR LAST DOSE? DATE: TIME: . NEUROLOGY: HAVE YOU FALLEN IN THE PAST 6 MONTHS? NO . ANY NEW EXTREMITY NUMBNESS OR WEAKNESS? NO . CARDIOLOGY: DO YOU HAVE A PACEMAKER OR DEFIBRILLATOR? NO . RESPIRATORY: HAVE YOU BEEN SICK IN THE PAST WEEK? NO . FEVER NO . FLU LIKE SYMPTOMS? NO . COUGH NO . INTEGUMENTARY: DO YOU HAVE ANY RASHES OR OPEN SORES? NO . ALLERGIC/IMMUNO: ARE YOU ALLERGIC TO SHELLFISH OR IV DYE? NO . ANY NEW ALLERGIES? NO . PSYCHIATRIC: DO YOU HAVE THOUGHTS OF HURTING YOURSELF OR SOMEONE ELSE? NO . ARE YOU ABUSED, NEGLECTED, OR IN AN UNSAFE ENVIRONMENT? NO . ENDOCRINOLOGY: ARE YOU DIABETIC? NO . OTHER: DO YOU NEED ANY PRESCRIPTIONS? NO . IF YES, PLEASE LIST: ____ . ANY NEW PROBLEMS WITH YOUR MEDICATIONS? NO . WHEN DID YOU LAST EAT? 07/26/18 1900 . WHEN DID YOU LAST DRINK? 07/27/17 0600 . WHAT DID YOU LAST DRINK? ____ . NAME OF PERSON DRIVING YOU HOME? EVELYN WHITMORE SISTER . DO YOU HAVE ANY OTHER QUESTIONS OR CONCERNS NO . VITAL SIGNS WT 164 LBS, HT 62 IN, BMI 29.99 INDEX, BP 134/89 MM HG, HR 67 /MIN, RR 16 /MIN, TEMP 97.5 F, OXYGEN SAT % 99%, NA INITIALS AW 0858, REVIEWED BY: BV. ASSESSMENTS SPONDYLOSIS OF CERVICAL REGION WITHOUT MYELOPATHY OR RADICULOPATHY - M47.812 (PRIMARY) PROCEDURES PN CERVICAL FACET BLOCK LOW BILATERAL CERVICAL PRE PROCEDURE DIAGNOSIS CERVICAL SPONDYLOSIS POST PROCEDURE DIAGNOSIS CERVICAL SPONDYLOSIS PROCEDURE BILATERAL C3-C4 AND BILATERAL C4-C5 CERVICAL FACET BLOCK SURGEON DR. JAZZMINE CASTILLO CLINICAL ANALYST NONE ANESTHESIA LOCAL PRE PROCEDURE NOTE THE PATIENT HAS HISTORY OF CHRONIC CERVICAL PAIN. I EVALUATE THE PATIENT AND REVIEWED THE CHART. I WENT OVER THE RISKS, ALTERNATIVES, AND BENEFITS ASSOCIATED WITH THIS PROCEDURE. THE PATIENT WOULD LIKE TO PROCEED AND GIVE CONSENT TO PERFORMED THE PROCEDURE. THE PATIENT DENIES UNEXPLAINABLE WEIGHT LOSS, FEVER, CHILLS, OR NEW CHANGES IN URINARY OR BOWEL CONTROL. DESCRIPTION OF PROCEDURE THE PATIENT WAS BROUGHT TO THE PROCEDURE ROOM AND PLACED IN THE PRONE POSITION. THE CERVICOTHORACIC AREA WAS CLEANED WITH CHLORAPREP SOLUTION AND DRAPED ASEPTICALLY. THE PROCEDURE WAS DONE UNDER STERILE CONDITIONS. I CHECKED LATERALITY AND THE LEVEL WHERE THE PROCEDURE WAS GOING TO BE PERFORMED WITH THE PATIENT AND THE SUPPORTING STAFF AT THE MOMENT OF THE TIME OUT IN THE PROCEDURE ROOM. UNDER FLUOROSCOPIC GUIDANCE, TARGET POINT WAS SELECTED AT THE RIGHT AND LEFT C3-C4 AND RIGHT AND LEFT C4-C5 CERVICAL FACET JOINT. TARGET POINTS WERE SELECTED AFTER LATERAL ROTATION AND TILT OF THE MAGNIFIER OF THE C-ARM. LIDOCAINE 0.5% WAS USED TO NUMB THE SKIN AND THE SUBCUTANEOUS TISSUE BELOW IT. SPINAL NEEDLES, 22-GAUGE, WERE ADVANCED UNDER FLUOROSCOPIC GUIDANCE AND FOLLOWING PATIENT FEEDBACK UNTIL THE TARGETS WERE TOUCHED. THE POSITION OF THE NEEDLES WAS VERIFIED WITH AP AND LATERAL VIEWS. AFTER PROPER POSITION OF THE NEEDLES WAS ACHIEVED, ISOVUE M DYE 30, 0.1 ML WAS INJECTED SHOWING SPREAD OF THE DYE. THEN A SOLUTION OF 0.9 ML OF BUPIVACAINE 0.125% AND KENALOG 10 MG WAS INJECTED AT EACH SITE. THERE WAS NO EVIDENCE OF BLOOD, PARESTHESIA OR CEREBROSPINAL FLUID DURING THE PROCEDURE. THE PATIENT WAS SENT TO THE RECOVERY ROOM. THE PATIENT WAS MOVING THE EXTREMITIES AND DOING WELL. THERE WAS NO COMPLICATION DURING THE PROCEDURE. FLUOROSCOPY TIME WAS 17 SECONDS POST PROCEDURE NOTE THE PATIENT WILL BE SEEN IN A FOLLOW UP IN THE NEXT FEW WEEKS. INSTRUCTIONS WERE GIVEN, QUESTIONS WERE ANSWERED, AND THE PATIENT EXPRESSED UNDERSTANDING AND AGREES WITH THE PLAN. I, NA ALFARO, DOCUMENTED THE ABOVE INFORMATION ACTING A SCRIBE FOR DR. CASTILLO. I HAVE REVIEWED THE ABOVE DOCUMENT, WRITTEN BY NA VELIZIBCecil AND I VERIFY THAT IT IS ACCURATE. DIAGNOSTIC IMAGING [facility] FACET BLOCK (PAIN)[id number] PROCEDURE CODES 6045F RADXPS IN END [id number] PXD 33291 INJ PARAVERT F JNT C/T 1 LEV, MODIFIERS: 50 [id number] INJ PARAVERT F JNT C/T 2 LEV, MODIFIERS: 50 DISPOSITION & COMMUNICATION FOLLOW UP 3 WEEKS ELECTRONICALLY SIGNED BY JAZZMINE CASTILLO MD, MD ON 08/11/2018 AT 01:00 PM EST DISCLAIMER : THIS IS A VISIT SUMMARY EXTRACTED FROM THE [employer] CHART. IT IS NOT A COPY OF THE [employer] PROGRESS NOTE. MTDD
== END ==
LOC: M PAIN 08:45
PROVIDERS: ATTEND Anesthesiology
DX: M47.812 Spondylosis without myelopathy or radiculopathy, cervical region (principal); I10 Essential (primary) hypertension; G43.909 Migraine, unspecified, not intractable, without status migrainosus; E78.00 Pure hypercholesterolemia, unspecified; M19.90 Unspecified osteoarthritis, unspecified site; F32.9 Major depressive disorder, single episode, unspecified; F41.9 Anxiety disorder, unspecified; G47.30 Sleep apnea, unspecified; Z79.899 Other long term (current) drug therapy; Z98.84 Bariatric surgery status
CPT/HCPCS: 64490; 64491; J3301; Q9967

== ENCOUNTER → 2018-08-19 | Outpatient (CLI) | payer BC ==
[~2018-08-19] MED LIST changes: -BUPIVACAINE HCL 0.25% 30 ML VIAL As Ordered ONE; -ISOVUE-M 300 61% 15ML VIAL (Q9967) As Ordered ONE; -LIDOCAINE 1% SDV INJ 30 ML VIAL As Ordered ONE; -TRIAMCINOLONE ACETONIDE SUSP 40 MG/ML VIAL (J3301) As Ordered ONE; -diazePAM 5 MG TAB As Ordered ONE; -oxyCODONE 5MG TAB As Ordered ONE
--- NOTE | 2018-08-31 00:27 | ECWPNPC ---
PATIENT NAME: ALVARO GARCIA : 1960 GENDER: FEMALE VISIT DATE: 08/19/2018 DISCHARGE DATE: 08/19/18 1502 VISIT LOCKED DATE TIME: PHYSICIAN: TAB MILLS RESOURCE: TAB MILLS REASON FOR APPOINTMENT 1. POST PROCEDURE HISTORY OF PRESENT ILLNESS HISTORY OF PRESENT ILLNESS: HERE FOR POST PROCEDURE F/U.HAD CFBT C3/4-C4/5 ON 07-27-18.REPORTING SOME IMPROVEMENT THAT CONTINUES TODAY.RATING PAIN VAS 4/10.DISCUSSED TREATMENT OPTIONS. PAIN THE PATIENT DESCRIBES THE PAIN... THE PATIENT DESCRIBES THE PAIN... THE PATIENT DESCRIBES THE PAIN... FALL RISK SCREENING: SCREENING :NO FALLS IN THE PAST YEAR CURRENT MEDICATIONS TAKING SYNTHROID 25 MCG TABLET 1 TABLET ON AN EMPTY STOMACH IN THE MORNING ORALLY ONCE A DAY TAKING FLEXERIL 10 MG ORALLY TWICE DAILY NEEDED TAKING XANAX 0.25 MG TABLET 1 TABLET ORALLY THREE TIMES DAILY NEEDED TAKING BUTALBITAL-ACETAMINOPHEN 50-325 MG TABLET 1 TABLET NEEDED ORALLY EVERY 4 HRS TAKING SIMVASTATIN 20 MG TABLET 1 TABLET ORALLY ONCE A DAY TAKING CALCIUM 250 MG TABLET ORALLY TAKING B-12 + FOLIC ACID 2500-400 MCG TABLET DISINTEGRATING ORALLY TAKING MULTI COMPLETE - CAPSULE ORALLY NOT-TAKING HYDROCODONE-ACETAMINOPHEN 5-325 MG TABLET 1 TABLET NEEDED ORALLY EVERY 6 HRS MDD=3, NOTES: NONE IN >2 WEEKS NOT-TAKING TRAMADOL HCL 50 MG TABLET 1 TABLET NEEDED ORALLY Q8H PRN MDD3 #45 TAB SHOULD LAST 30 DAYS, NOTES: NONE IN >2 WEEKS MEDICATION LIST REVIEWED AND RECONCILED WITH THE PATIENT PAST MEDICAL HISTORY ARTHRITIS BACK PAIN HIGH CHOLESTEROL HTN MIGRAINES DEPRESSION ANXIETY SLEEP APNEA, USES CPAP ALLERGIES N.K.D.A. SURGICAL HISTORY HYSTERECTOMY 2004 GASTRIC SLEEVE SURGERY 09/2017 FAMILY HISTORY FATHER: 81 YRS, DIAGNOSED WITH HYPERTENSION MOTHER: , DIAGNOSED WITH CANCER SIBLINGS: IMMUNE DISEASE IN SISTER 1 BROTHER(S) , 4 SISTER(S) - HEALTHY. 2DAUGHTER(S) . DAD THIS . HOSPITALIZATION/MAJOR DIAGNOSTIC PROCEDURE SYNCOPAL EPISODES 2013 REVIEW OF SYSTEMS REVIEWED BY: PROVIDER: TAB WISDOM . CONSTITUTIONAL: ANY CHANGE IN YOUR MEDICAL CONDITION? NO . CHILLS NO . FEVER NO . INFECTION: DO YOU HAVE NEW INFECTIONS? NO . DO YOU HAVE HISTORY OF MRSA? NO . MUSCULOSKELETAL: ANY NEW PATTERNS OF PAIN OR NUMBNESS? NO . GASTROENTEROLOGY: ANY NEW CHANGE IN BOWEL CONTROL? NO . GENITOURINARY: ANY NEW CHANGE IN BLADDER CONTROL? NO . IS THERE A CHANCE YOU COULD BE ? NO . HEMATOLOGY/LYMPH: DO YOU TAKE ANY BLOOD THINNERS? (FOR EXAMPLE- COUMADIN, PLAVIX, AGGRENOX, PLATEL, PRADAXA, OR XARELTO) NO . WHEN WAS YOUR LAST DOSE? DATE: TIME: . NEUROLOGY: HAVE YOU FALLEN IN THE PAST 12 MONTHS? NO . ANY NEW EXTREMITY NUMBNESS OR WEAKNESS? NO . CARDIOLOGY: DO YOU HAVE A PACEMAKER OR DEFIBRILLATOR? NO . RESPIRATORY: HAVE YOU BEEN SICK IN THE PAST WEEK? NO . FEVER NO . FLU LIKE SYMPTOMS? NO . COUGH NO . INTEGUMENTARY: DO YOU HAVE ANY RASHES OR OPEN SORES? NO . ALLERGIC/IMMUNO: ARE YOU ALLERGIC TO IV DYE? NO . ANY NEW ALLERGIES? NO . PSYCHIATRIC: DO YOU HAVE THOUGHTS OF HURTING YOURSELF OR SOMEONE ELSE? NO . ARE YOU ABUSED, NEGLECTED, OR IN AN UNSAFE ENVIRONMENT? NO . ENDOCRINOLOGY: ARE YOU DIABETIC? NO . OTHER: DO YOU NEED ANY PRESCRIPTIONS? NO . IF YES, PLEASE LIST: ____ . ANY NEW PROBLEMS WITH YOUR MEDICATIONS? NO . WHEN DID YOU LAST EAT? ____ . WHEN DID YOU LAST DRINK? ____ . WHAT DID YOU LAST DRINK? ____ . NAME OF PERSON DRIVING YOU HOME? ____ . DO YOU HAVE ANY OTHER QUESTIONS OR CONCERNS WOULD LIKE INFORMATION ON MEDICAL MARIJUANA . VITAL SIGNS WT 158 LBS, HT 62 IN, BMI 28.90 INDEX, HR 67 /MIN, RR 16 /MIN, TEMP 98.6 F, REVIEWED BY: KG. EXAMINATION GENERAL EXAMINATION: GENERAL APPEARANCE:AWAKE,ALERT ,PLEAASANT . PSYCHAFFECT NORMAL . LUNGS:LUNG GARCIA ARE CLEAR TO AUSCULTATION BILATERALLY. GOOD MOVEMENT OF AIR . HEART:S1, S2 IN A REGULAR RATE AND RHYTHM. NO SIGNIFICANT MURMURS, RUBS OR GALLOPS NOTED . ASSESSMENTS CERVICAL SPONDYLOSIS WITHOUT MYELOPATHY - M47.812 (PRIMARY) TREATMENT CERVICAL SPONDYLOSIS WITHOUT MYELOPATHY NOTES: CONTINUE CONSERVATIVE CARE,CONSIDER SURGICAL EVALUATION. PROCEDURE CODES FA211 ESTABILISHED PATIENT [facility] CHARGE DISPOSITION & COMMUNICATION FOLLOW UP 3 MONTHS ELECTRONICALLY SIGNED BY ARTIS BRAR ON 08/30/2018 AT 03:01 PM EST DISCLAIMER : THIS IS A VISIT SUMMARY EXTRACTED FROM THE [employer] CHART. IT IS NOT A COPY OF THE [employer] PROGRESS NOTE. KAMRAN
== END ==
LOC: M PAIN 14:45
PROVIDERS: ATTEND Nurse Practitioner Family
DX: M47.812 Spondylosis without myelopathy or radiculopathy, cervical region (principal); E78.00 Pure hypercholesterolemia, unspecified; I10 Essential (primary) hypertension; G43.909 Migraine, unspecified, not intractable, without status migrainosus; F32.9 Major depressive disorder, single episode, unspecified; F41.9 Anxiety disorder, unspecified; G47.30 Sleep apnea, unspecified; Z98.84 Bariatric surgery status; Z79.899 Other long term (current) drug therapy; Z90.710 Acquired absence of both cervix and uterus

== ENCOUNTER → 2018-11-16 | Outpatient (CLI) | payer BC ==
[2018-11-16 18:23] LABS: BASO # 0.1 10^3/uL (0.0-0.2); BASO % 0.5 % (0.0-1.0); EOS # 0.2 10^3/uL (0.0-0.50); EOS % 1.7 % (0.0-3.0); HEMATOCRIT 38.2 % (36.0-47.0); HEMOGLOBIN 12.2 g/dl (12.0-15.5); LYMPH # 3.3 10^3/uL (1.5-4.5); LYMPH % 32.8 % (24.0-44.0); MEAN CORPUSCULAR HEMOGLOBIN 31.2 pg (27.0-33.0); MEAN CORPUSCULAR HGB CONC 31.9 g/dl (32.0-36.5); MEAN CORPUSCULAR VOLUME 97.7 fl (80.0-96.0); MONO # 0.7 10^3/uL (0.0-0.8); MONO % 7.3 % (0.0-5.0); NEUTROPHILS # 5.7 10^3/uL (1.8-7.7); NEUTROPHILS % 57.4 % (36.0-66.0); PLATELET COUNT, AUTOMATED 295 10^3/uL (150-450); RED BLOOD COUNT 3.91 10^6/uL (4.00-5.40)
[2018-11-16 18:35] LABS: HEMATOCRIT 38.2 % (36.0-47.0)
[2018-11-16 18:57] LABS: ALBUMIN 3.5 GM/DL (3.2-5.2); ALT/SGPT 17 U/L (12-78); BILIRUBIN,TOTAL 0.2 MG/DL (0.2-1.0); BLOOD UREA NITROGEN 26 MG/DL (7-18); CALCIUM LEVEL 8.9 MG/DL (8.5-10.1); CARBON DIOXIDE LEVEL 30 MEQ/L (21-32); CHLORIDE LEVEL 105 MEQ/L (98-107); CREATININE FOR GFR 0.77 MG/DL (0.55-1.30); FERRITIN 131 NG/ML (8-252); GLOMERULAR FILTRATION RATE > 60.0 (>51); GLUCOSE, FASTING 107 MG/DL (70-100); IRON (FE) 63 UG/DL (50-170); MAGNESIUM LEVEL 1.9 MG/DL (1.8-2.4); PHOSPHORUS LEVEL 3.6 MG/DL (2.5-4.9); POTASSIUM SERUM 4.4 MEQ/L (3.5-5.1); SODIUM LEVEL 139 MEQ/L (136-145); TOTAL 25(OH) VITAMIN D 31.3 NG/ML (30.0-100.0); TOTAL IRON BINDING CAPACITY 287 UG/DL (250-450); TOTAL PROTEIN 7.2 GM/DL (6.4-8.2); VITAMIN B12 LEVEL 431 PG/ML (247-911)
== END ==
LOC: M SMT 14:33
PROVIDERS: ATTEND Surgery
DX: Z98.84 Bariatric surgery status (principal); E55.9 Vitamin D deficiency, unspecified; K91.2 Postsurgical malabsorption, not elsewhere classified

== ENCOUNTER → 2019-01-04 | Outpatient (REF) | payer BC ==
[2019-01-04 14:26] LABS: APPEARANCE, URINE HAZY (CLEAR); COLOR, URINE YELLOW (YELLOW)
[2019-01-04 14:27] LABS: BILIRUBIN, URINE AUTO NEGATIVE (NEGATIVE); BLOOD, URINE BLOOD 1+ (NEGATIVE); GLUCOSE, URINE (UA) AUTO NEGATIVE (NEGATIVE); KETONE, URINE AUTO NEGATIVE (NEGATIVE); LEUKOCYTE ESTERASE, URINE AUTO 1+ (NEGATIVE); NITRITE, URINE AUTO POSITIVE (NEGATIVE); PROTEIN, URINE AUTO NEGATIVE (NEGATIVE)
[2019-01-04 14:35] LABS: BACTERIA, URINE AUTO 3+ (NEGATIVE); WBC, URINE AUTO 40-50 /HPF (0-3)
[2019-01-04 14:36] LABS: SQUAMOUS EPITHELIAL CELL UR AU MOD AMOUNT /HPF (0-6)
[2019-01-04 14:37] LABS: UROBILINOGEN, URINE AUTO NORMAL mg/dL (0.0-2.0)
[2019-01-04 14:59] LABS: CHLAMYDIA DNA AMPLIFICATION NEGATIVE (NEGATIVE); GC DNA AMPLIFICATION NEGATIVE (NEGATIVE)
== END ==
LOC: M LAB REF 12:05
PROVIDERS: ATTEND Nurse Practitioner Family
DX: Z11.3 Encounter for screening for infections with a predominantly sexual mode of transmission (principal)

== ENCOUNTER → 2019-01-04 | Outpatient (REF) | payer BC ==
[2019-01-04 13:17] LABS: BASO # 0.1 10^3/uL (0.0-0.2); BASO % 0.8 % (0.0-1.0); EOS # 0.1 10^3/uL (0.0-0.50); EOS % 1.8 % (0.0-3.0); HEMATOCRIT 44.4 % (36.0-47.0); HEMOGLOBIN 14.4 g/dl (12.0-15.5); LYMPH # 2.5 10^3/uL (1.5-4.5); LYMPH % 38.8 % (24.0-44.0); MEAN CORPUSCULAR HEMOGLOBIN 31.2 pg (27.0-33.0); MEAN CORPUSCULAR HGB CONC 32.4 g/dl (32.0-36.5); MEAN CORPUSCULAR VOLUME 96.1 fl (80.0-96.0); MONO # 0.5 10^3/uL (0.0-0.8); MONO % 6.9 % (0.0-5.0); NEUTROPHILS # 3.3 10^3/uL (1.8-7.7); NEUTROPHILS % 51.4 % (36.0-66.0); PLATELET COUNT, AUTOMATED 315 10^3/uL (150-450); RED BLOOD COUNT 4.62 10^6/uL (4.00-5.40); WHITE BLOOD COUNT 6.5 10^3/uL (4.0-10.0)
[2019-01-04 13:22] LABS: ALBUMIN 3.9 GM/DL (3.2-5.2); ALT/SGPT 23 U/L (12-78); BILIRUBIN,TOTAL 0.5 MG/DL (0.2-1.0); BLOOD UREA NITROGEN 20 MG/DL (7-18); CALCIUM LEVEL 9.3 MG/DL (8.5-10.1); CARBON DIOXIDE LEVEL 33 MEQ/L (21-32); CHLORIDE LEVEL 106 MEQ/L (98-107); CHOLESTEROL LEVEL 220 MG/DL (<200); CHOLESTEROL RISK RATIO 2.365 (<5); CREATININE FOR GFR 0.66 MG/DL (0.55-1.30); GLOMERULAR FILTRATION RATE > 60.0 (>51); GLUCOSE, FASTING 79 MG/DL (70-100); HDL CHOLESTEROL 93 MG/DL (>40); LDL CHOLESTEROL 113 MG/DL (<100); NON-HDL-C 127 MG/DL; POTASSIUM SERUM 4.2 MEQ/L (3.5-5.1); SODIUM LEVEL 142 MEQ/L (136-145); TOTAL PROTEIN 7.9 GM/DL (6.4-8.2); TRIGLYCERIDES LEVEL 71 MG/DL (<150)
[2019-01-04 14:04] LABS: HIV 1&2 SCREEN CENTAUR NEGATIVE (NEGATIVE)
== END ==
LOC: M LAB REF 12:18
PROVIDERS: ATTEND Nurse Practitioner Family
DX: Z11.3 Encounter for screening for infections with a predominantly sexual mode of transmission (principal); E78.5 Hyperlipidemia, unspecified; I10 Essential (primary) hypertension

== ENCOUNTER → 2019-04-29 | Outpatient (REF) | payer BC ==
[2019-04-29 19:42] LABS: APPEARANCE, URINE CLOUDY (CLEAR); BACTERIA, URINE AUTO 1+ (NEGATIVE); BILIRUBIN, URINE AUTO NEGATIVE (NEGATIVE); BLOOD, URINE BLOOD 1+ (NEGATIVE); COLOR, URINE AMBER (YELLOW); GLUCOSE, URINE (UA) AUTO NEGATIVE (NEGATIVE); KETONE, URINE AUTO TRACE mg/dL (NEGATIVE); LEUKOCYTE ESTERASE, URINE AUTO NEGATIVE (NEGATIVE); MUCUS, URINE SMALL (NEGATIVE); NITRITE, URINE AUTO NEGATIVE (NEGATIVE); PROTEIN, URINE AUTO NEGATIVE (NEGATIVE); RBC, URINE AUTO 6 /HPF (0-3); SPECIFIC GRAVITY URINE AUTO 1.023 (1.002-1.035); SQUAMOUS EPITHELIAL CELL UR AU 2 /HPF (0-6); UROBILINOGEN, URINE AUTO 0.2 mg/dL (0.0-2.0); WBC, URINE AUTO 8 /HPF (0-3)
[2019-04-29 22:06] LABS: CHLAMYDIA DNA AMPLIFICATION NEGATIVE (NEGATIVE); GC DNA AMPLIFICATION NEGATIVE (NEGATIVE)
== END ==
LOC: M LAB REF 13:45
PROVIDERS: ATTEND Nurse Practitioner Adult Health
DX: R30.0 Dysuria (principal); N89.8 Other specified noninflammatory disorders of vagina

== ENCOUNTER → 2020-01-27 | Outpatient (CLI) | payer BC ==
[~2020-01-27] MED LIST changes: +CIPR-249 PO; +CYCL-707 PO; -CYCL10TA PO; +FLUO20CA22; +KEFL500C17 PO; +LEVO75TA4; +LISI10TA4; +METF500T13; +SIMV20TA22
[2020-01-27 17:07] LABS: BASO # 0.1 10^3/uL (0.0-0.2); BASO % 0.9 % (0.0-1.0); EOS # 0.1 10^3/uL (0.0-0.5); EOS % 1.6 % (0.0-3.0); HEMOGLOBIN 12.8 g/dl (12.0-15.5); LYMPH # 2.7 10^3/uL (1.5-5.0); LYMPH % 35.6 % (24.0-44.0); MEAN CORPUSCULAR HEMOGLOBIN 32.1 pg (27.0-33.0); MEAN CORPUSCULAR HGB CONC 32.8 g/dl (32.0-36.5); MEAN CORPUSCULAR VOLUME 97.7 fl (80.0-96.0); MONO # 0.9 10^3/uL (0.0-0.8); MONO % 11.8 % (0.0-5.0); NEUTROPHILS # 3.8 10^3/uL (1.5-8.5); NEUTROPHILS % 49.8 % (36.0-66.0); PLATELET COUNT, AUTOMATED 264 10^3/uL (150-450); RED BLOOD COUNT 3.99 10^6/uL (4.00-5.40); WHITE BLOOD COUNT 7.5 10^3/uL (4.0-10.0)
[2020-01-27 17:27] LABS: APPEARANCE, URINE CLOUDY (CLEAR); BACTERIA, URINE AUTO 3+ (NEGATIVE); BILIRUBIN, URINE AUTO NEGATIVE (NEGATIVE); BLOOD, URINE BLOOD 1+ (NEGATIVE); COLOR, URINE YELLOW (YELLOW); GLUCOSE, URINE (UA) AUTO NEGATIVE (NEGATIVE); KETONE, URINE AUTO TRACE mg/dL (NEGATIVE); LEUKOCYTE ESTERASE, URINE AUTO NEGATIVE (NEGATIVE); NITRITE, URINE AUTO POSITIVE (NEGATIVE); PROTEIN, URINE AUTO NEGATIVE (NEGATIVE); RBC, URINE AUTO 7 /HPF (0-3); SPECIFIC GRAVITY URINE AUTO 1.021 (1.002-1.035); SQUAMOUS EPITHELIAL CELL UR AU 2 /HPF (0-6); WBC, URINE AUTO 6 /HPF (0-3)
[2020-01-27 17:43] LABS: ALBUMIN 4.1 GM/DL (3.2-5.2); ALT/SGPT 62 U/L (12-78); BILIRUBIN,TOTAL 0.4 MG/DL (0.2-1.0); BLOOD UREA NITROGEN 19 MG/DL (7-18); CALCIUM LEVEL 9.7 MG/DL (8.5-10.1); CARBON DIOXIDE LEVEL 29 MEQ/L (21-32); CHLORIDE LEVEL 103 MEQ/L (98-107); CHOLESTEROL LEVEL 212 MG/DL (<200); CREATININE FOR GFR 0.66 MG/DL (0.55-1.30); GLOMERULAR FILTRATION RATE > 60.0 (>51); GLUCOSE, FASTING 72 MG/DL (70-100); HDL CHOLESTEROL 106 MG/DL (>40); LDL CHOLESTEROL 93 MG/DL (<100); NON-HDL-C 106 MG/DL; POTASSIUM SERUM 4.8 MEQ/L (3.5-5.1); SODIUM LEVEL 140 MEQ/L (136-145); THYROID STIMULATING HORMONE 0.891 uIU/ML (0.358-3.740); TOTAL PROTEIN 7.8 GM/DL (6.4-8.2); TRIGLYCERIDES LEVEL 67 MG/DL (<150)
[2020-01-27 17:51] LABS: HEMOGLOBIN A1c 6.7 %
== END ==
LOC: M PLALAB 15:36
PROVIDERS: ATTEND Nurse Practitioner Family
DX: Z13.9 Encounter for screening, unspecified (principal); F10.20 Alcohol dependence, uncomplicated; E03.9 Hypothyroidism, unspecified; E66.09 Other obesity due to excess calories; G43.909 Migraine, unspecified, not intractable, without status migrainosus; E78.5 Hyperlipidemia, unspecified; I10 Essential (primary) hypertension

== ENCOUNTER 2020-02-07 11:17 | Emergency (ER) | payer OTHER, BC ==
[~2020-02-07] VITALS: Ht 157.5 cm; Wt 73.0 kg
[~2020-02-07 11:17] MED LIST changes: -CIPR-249 PO; -FLUO20CA22; -KEFL500C17 PO; -LEVO75TA4; -LISI10TA4; -METF500T13; -SIMV20TA22
[2020-02-07] MEDS ORDERED: LEVO75TA4 (11:26)
[2020-02-07] MEDS ORDERED: SIMV20TA22 (11:26)
[2020-02-07] MEDS ORDERED: FLUO20CA22 (11:26)
[2020-02-07] MEDS ORDERED: BOOSTRIX/ADACEL VACCINE (DIPHTH/PERTUSS/ACELL/TETANUS) 0.5ML SYR IM ONE (12:00)
--- NOTE | 2020-02-07 12:31 | REP ---
Clinical: Trauma. Technique: AP, lateral, bilateral oblique views left fifth digit . Findings: No obvious acute fracture or dislocation is appreciated. Evaluation for subtle injury is limited due to underlying osteopenia and degenerative changes. No subcutaneous emphysema or foreign body. Impression: Degenerative changes. No obvious acute fracture or dislocation. Electronically Signed by Pawan Mcclure MD 02/07/2020 12:23 P
[2020-02-07] MEDS ORDERED: KEFL500C17 PO (12:43)
[2020-02-07 12:58] VITALS: BP 133/73
== END 2020-02-07 12:59 | disposition home or self-care (01) ==
LOC: M ED 11:17
DX: S61.207A Unspecified open wound of left little finger without damage to nail, initial encounter (principal); W26.8XXA Contact with other sharp object(s), not elsewhere classified, initial encounter; Y92.89 Other specified places as the place of occurrence of the external cause; Y99.0 Civilian activity done for income or pay; I10 Essential (primary) hypertension; E03.9 Hypothyroidism, unspecified; R01.1 Cardiac murmur, unspecified; Z98.84 Bariatric surgery status; Z79.899 Other long term (current) drug therapy; Z79.890 Hormone replacement therapy

== ENCOUNTER → 2020-03-07 | Outpatient (REF) | payer BC ==
[~2020-03-07] MED LIST changes: +CIPR-249 PO; +FLUO20CA22; +KEFL500C17 PO; +LEVO75TA4; +LISI10TA4; +METF500T13; +SIMV20TA22
[2020-04-25 11:12] LABS: APPEARANCE, URINE HAZY (CLEAR); BACTERIA, URINE AUTO 1+ (NEGATIVE); BILIRUBIN, URINE AUTO NEGATIVE (NEGATIVE); BLOOD, URINE BLOOD 1+ (NEGATIVE); COLOR, URINE YELLOW (YELLOW); GLUCOSE, URINE (UA) AUTO NEGATIVE (NEGATIVE); KETONE, URINE AUTO NEGATIVE (NEGATIVE); LEUKOCYTE ESTERASE, URINE AUTO 2+ (NEGATIVE); MUCUS, URINE SMALL (NEGATIVE); NITRITE, URINE AUTO POSITIVE (NEGATIVE); PROTEIN, URINE AUTO NEGATIVE (NEGATIVE); RBC, URINE AUTO 2 /HPF (0-3); SQUAMOUS EPITHELIAL CELL UR AU 1 /HPF (0-6); UROBILINOGEN, URINE AUTO 0.2 mg/dL (0.0-2.0); WBC, URINE AUTO 22 /HPF (0-3)
== END ==
LOC: M LAB REF 12:08
PROVIDERS: ATTEND Nurse Practitioner Family
DX: R30.0 Dysuria (principal)

== ENCOUNTER 2020-03-09 15:43 | Emergency (ER) | payer BC, OTHER ==
[~2020-03-09] VITALS: Ht 157.5 cm; Wt 72.0 kg
[~2020-03-09 15:43] MED LIST changes: -CIPR-249 PO; -LISI10TA4; -METF500T13
[2020-03-09 17:10] LABS: BASO # 0.1 10^3/uL (0.0-0.2); BASO % 0.8 % (0.0-1.0); EOS % 0.4 % (0.0-3.0); HEMATOCRIT 39.4 % (36.0-47.0); HEMOGLOBIN 13.7 g/dl (12.0-15.5); LYMPH # 1.2 10^3/uL (1.5-5.0); LYMPH % 13.9 % (24.0-44.0); MEAN CORPUSCULAR HEMOGLOBIN 32.4 pg (27.0-33.0); MEAN CORPUSCULAR HGB CONC 34.8 g/dl (32.0-36.5); MEAN CORPUSCULAR VOLUME 93.1 fl (80.0-96.0); MONO # 0.6 10^3/uL (0.0-0.8); MONO % 6.9 % (0.0-5.0); NEUTROPHILS # 6.6 10^3/uL (1.5-8.5); NEUTROPHILS % 77.5 % (36.0-66.0); PLATELET COUNT, AUTOMATED 273 10^3/uL (150-450); RED BLOOD COUNT 4.23 10^6/uL (4.00-5.40); WHITE BLOOD COUNT 8.5 10^3/uL (4.0-10.0)
[2020-03-09 17:28] LABS: ALBUMIN 3.8 GM/DL (3.2-5.2); ALT/SGPT 99 U/L (12-78); BILIRUBIN,DIRECT 0.2 MG/DL (0.0-0.2); BILIRUBIN,TOTAL 0.6 MG/DL (0.2-1.0); BLOOD UREA NITROGEN 14 MG/DL (7-18); CALCIUM LEVEL 9.5 MG/DL (8.5-10.1); CARBON DIOXIDE LEVEL 25 MEQ/L (21-32); CHLORIDE LEVEL 102 MEQ/L (98-107); CREATININE FOR GFR 0.69 MG/DL (0.55-1.30); GLOMERULAR FILTRATION RATE > 60.0 (>51); GLUCOSE, FASTING 109 MG/DL (70-100); LIPASE 171 U/L (73-393); POTASSIUM SERUM 3.7 MEQ/L (3.5-5.1); SODIUM LEVEL 134 MEQ/L (136-145); TOTAL PROTEIN 7.7 GM/DL (6.4-8.2)
--- NOTE | 2020-03-09 20:27 | REPVR ---
PROCEDURE INFORMATION: Exam: CT Abdomen And Pelvis Without Contrast Exam date and time: 03/09/2020 8:05 PM Age: 59 years old Clinical indication: Abdominal pain; Generalized; Additional info: Abd pain/hematuria TECHNIQUE: Imaging protocol: Computed tomography of the abdomen and pelvis without contrast. Radiation optimization: All CT scans at this facility use at least one of these dose optimization techniques: automated exposure control; mA and/or kV adjustment per patient size (includes targeted exams where dose is matched to clinical indication); or iterative reconstruction. COMPARISON: CT ABD/PEL W/IV ORAL CONTRAS 10/31/2017 10:11 PM FINDINGS: Liver: There is a diffuse decrease in hepatic parenchymal density, consistent with steatosis. Focus of increased steatosis in segment 4A of the liver. Hepatomegaly. Gallbladder and bile ducts: Normal. No calcified stones. No ductal dilation. Pancreas: Normal. No ductal dilation. Spleen: Normal. No splenomegaly. Adrenals: Normal. No mass. Kidneys and ureters: Punctate nonobstructive calculus left kidney. Stomach and bowel: This patient is status post gastric bypass surgery. Appendix: No evidence of appendicitis. Intraperitoneal space: Unremarkable. No free air. No significant fluid collection. Vasculature: Unremarkable. No abdominal aortic aneurysm. Lymph nodes: Unremarkable. No enlarged lymph nodes. Bladder: Air within the urinary bladder likely postprocedural. Clinical correlation to exclude infection suggested. Reproductive: There has been a hysterectomy. Bones/joints: Moderate central spinal stenosis L2-L3, moderate to severe central spinal stenosis L3-L4 and severe central spinal stenosis L4-L5. Soft tissues: Unremarkable. IMPRESSION: 1. There is a diffuse decrease in hepatic parenchymal density, consistent with steatosis. Focus of increased steatosis in segment 4A of the liver. Hepatomegaly. 2. This patient is status post gastric bypass surgery. 3. Punctate nonobstructive calculus left kidney. 4. There has been a hysterectomy. 5. Air within the urinary bladder likely postprocedural. Clinical correlation to exclude infection suggested. Electronically signed by: Gera Fan On 03/09/2020 20:27:42 PM
[2020-03-09 20:42] VITALS: BP 141/76
[2020-03-09] MEDS ORDERED: CIPR-249 PO (21:21)
[2020-03-09] MEDS ORDERED: CIPROFLOXACIN 500MG TABLET PO ONE (21:30)
--- NOTE | 2020-03-30 09:37 | ECGEPIP ---
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
--- NOTE | 2020-04-11 08:58 | REP ---
RIGHT UPPER QUADRANT SONOGRAPHY (Repeat Dictation) HISTORY: Abdominal pain, right upper quadrant pain, vomiting, elevated liver function studies. Preliminary report is provided by [facility]. FINDINGS: Scanning through the right upper quadrant of the abdomen demonstrates a normal-sized, thin walled gallbladder without evidence of stone or polyp. Common bile duct is normal, measuring 0.4 cm in greatest diameter. The liver is not enlarged. There is some increased echogenicity in the liver consistent with fatty infiltration. There is no hepatic mass-lesion or intrahepatic ductal dilation. There is no evidence of ascites. No abnormality is noted in the pancreas. No right renal abnormality is noted. The right kidney measures 10.3 x 5.3 x 4.2 cm. IMPRESSION: Evidence of mild fatty infiltration of the liver; otherwise, negative. MTDD
== END 2020-03-09 21:48 | disposition home or self-care (01) ==
LOC: M ED 15:43
DX: N30.90 Cystitis, unspecified without hematuria (principal); K76.0 Fatty (change of) liver, not elsewhere classified; R11.10 Vomiting, unspecified; E11.9 Type 2 diabetes mellitus without complications; I10 Essential (primary) hypertension; E78.5 Hyperlipidemia, unspecified; G47.33 Obstructive sleep apnea (adult) (pediatric); M54.9 Dorsalgia, unspecified; Z98.84 Bariatric surgery status

== ENCOUNTER → 2020-04-17 | Outpatient (CLI) | payer BC, OTHER ==
[~2020-04-17] MED LIST changes: +CIPR-249 PO; +LISI10TA4; +METF500T13
[2020-04-17 14:12] LABS: BASO # 0.1 10^3/uL (0.0-0.2); BASO % 1.3 % (0.0-1.0); EOS # 0.2 10^3/uL (0.0-0.5); EOS % 2.3 % (0.0-3.0); HEMATOCRIT 42.7 % (36.0-47.0); HEMOGLOBIN 13.7 g/dl (12.0-15.5); LYMPH # 2.3 10^3/uL (1.5-5.0); LYMPH % 28.6 % (24.0-44.0); MEAN CORPUSCULAR HEMOGLOBIN 31.8 pg (27.0-33.0); MEAN CORPUSCULAR HGB CONC 32.1 g/dl (32.0-36.5); MEAN CORPUSCULAR VOLUME 99.1 fl (80.0-96.0); MONO # 0.7 10^3/uL (0.0-0.8); MONO % 8.5 % (0.0-5.0); NEUTROPHILS # 4.6 10^3/uL (1.5-8.5); NEUTROPHILS % 58.8 % (36.0-66.0); PLATELET COUNT, AUTOMATED 321 10^3/uL (150-450); RED BLOOD COUNT 4.31 10^6/uL (4.00-5.40); WHITE BLOOD COUNT 7.9 10^3/uL (4.0-10.0)
[2020-04-17 14:22] LABS: INR 0.9; PARTIAL THROMBOPLASTIN TIME 27.9 SECONDS (24.2-38.5); PROTHROMBIN TIME 12.4 SECONDS (12.5-14.3)
[2020-04-17 14:29] LABS: ALBUMIN 3.8 GM/DL (3.2-5.2); ALT/SGPT 36 U/L (12-78); BILIRUBIN,TOTAL 0.3 MG/DL (0.2-1.0); BLOOD UREA NITROGEN 12 MG/DL (7-18); CALCIUM LEVEL 9.4 MG/DL (8.5-10.1); CARBON DIOXIDE LEVEL 29 MEQ/L (21-32); CHLORIDE LEVEL 106 MEQ/L (98-107); CREATININE FOR GFR 0.54 MG/DL (0.55-1.30); GLOMERULAR FILTRATION RATE > 60.0 (>51); GLUCOSE, FASTING 79 MG/DL (70-100); POTASSIUM SERUM 4.7 MEQ/L (3.5-5.1); SODIUM LEVEL 138 MEQ/L (136-145); THYROXINE (T4) 7.1 UG/DL (4.5-12.0); TOTAL PROTEIN 7.6 GM/DL (6.4-8.2)
[2020-04-17 14:36] LABS: HEMOGLOBIN A1c 5.1 %
== END ==
LOC: M PLALAB 11:22
PROVIDERS: ATTEND Physician Assistant Medical
DX: E11.8 Type 2 diabetes mellitus with unspecified complications (principal); E03.9 Hypothyroidism, unspecified; F41.8 Other specified anxiety disorders; E73.9 Lactose intolerance, unspecified

== ENCOUNTER 2020-04-24 15:55 | Emergency (ER) | payer BC, OTHER ==
[~2020-04-24] VITALS: Ht 157.5 cm; Wt 73.2 kg
[~2020-04-24 15:55] MED LIST changes: -LISI10TA4; -METF500T13
[2020-04-24] MEDS ORDERED: LISI10TA4 (16:21)
[2020-04-24] MEDS ORDERED: METF500T13 (16:21)
[2020-04-24 17:53] LABS: BASO # 0.1 10^3/uL (0.0-0.2); BASO % 0.6 % (0.0-1.0); EOS % 0.3 % (0.0-3.0); HEMOGLOBIN 13.8 g/dl (12.0-15.5); LYMPH # 1.3 10^3/uL (1.5-5.0); LYMPH % 14.8 % (24.0-44.0); MEAN CORPUSCULAR HEMOGLOBIN 32.2 pg (27.0-33.0); MEAN CORPUSCULAR HGB CONC 33.7 g/dl (32.0-36.5); MEAN CORPUSCULAR VOLUME 95.6 fl (80.0-96.0); MONO # 0.6 10^3/uL (0.0-0.8); MONO % 6.5 % (0.0-5.0); NEUTROPHILS # 6.8 10^3/uL (1.5-8.5); NEUTROPHILS % 77.2 % (36.0-66.0); PLATELET COUNT, AUTOMATED 298 10^3/uL (150-450); RED BLOOD COUNT 4.29 10^6/uL (4.00-5.40); WHITE BLOOD COUNT 8.9 10^3/uL (4.0-10.0)
--- NOTE | 2020-04-24 18:01 | REPVR ---
PROCEDURE INFORMATION: Exam: XR Chest, 2 Views Exam date and time: 04/24/2020 5:17 PM Age: 59 years old Clinical indication: Other: Near syncope TECHNIQUE: Imaging protocol: XR of the chest Views: 2 views. COMPARISON: No relevant prior studies available. FINDINGS: Lungs: There is no visualized lung consolidation. Mild prominence of the pulmonary vascular markings. Pleural space: No pleural effusion. No pneumothorax. Heart/Mediastinum: No cardiomegaly. Bones/joints: Hypertrophic degenerative changes are noted involving the spine. Mild anterior wedging at the of the T11 vertebral body, consistent with a chronic compression deformity compared to the previous CT. IMPRESSION: 1. There is no visualized lung consolidation. 2. Mild prominence of the pulmonary vascular markings. 3. Additional findings described above. Electronically signed by: Jamel Humphrey On 04/24/2020 18:01:33 PM
[2020-04-24 18:28] LABS: ALBUMIN 3.7 GM/DL (3.2-5.2); ALT/SGPT 37 U/L (12-78); BILIRUBIN,DIRECT < 0.1 MG/DL (0.0-0.2); BILIRUBIN,TOTAL 0.3 MG/DL (0.2-1.0); BLOOD UREA NITROGEN 17 MG/DL (7-18); CALCIUM LEVEL 9.5 MG/DL (8.5-10.1); CARBON DIOXIDE LEVEL 29 MEQ/L (21-32); CHLORIDE LEVEL 103 MEQ/L (98-107); CK-MB VALUE MASS 4.6 NG/ML (<3.6); CPK CREATINE PHOSPHOKINASE 246 U/L (26-192); CREATININE FOR GFR 0.63 MG/DL (0.55-1.30); FREE T4 0.91 NG/DL (0.76-1.46); GLOMERULAR FILTRATION RATE > 60.0 (>51); GLUCOSE, FASTING 181 MG/DL (70-100); MB/CK RELATIVE INDEX 1.87 (< OR =4); SODIUM LEVEL 138 MEQ/L (136-145); TOTAL PROTEIN 7.5 GM/DL (6.4-8.2); TROPONIN I < 0.02 NG/ML (< 0.10)
[2020-04-24 19:14] VITALS: BP 159/89
--- NOTE | 2020-04-24 19:59 | ECGEPIP ---
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
== END 2020-04-24 19:14 | disposition home or self-care (01) ==
LOC: M ED 15:55
DX: R55 Syncope and collapse (principal); E16.2 Hypoglycemia, unspecified; R91.8 Other nonspecific abnormal finding of lung field; I10 Essential (primary) hypertension; E78.5 Hyperlipidemia, unspecified; G47.30 Sleep apnea, unspecified; M54.5 Low back pain; G43.909 Migraine, unspecified, not intractable, without status migrainosus; F33.9 Major depressive disorder, recurrent, unspecified; F41.9 Anxiety disorder, unspecified; Z79.84 Long term (current) use of oral hypoglycemic drugs; Z79.899 Other long term (current) drug therapy

== ENCOUNTER → 2020-05-23 | Outpatient (REF) | payer BC ==
[~2020-05-23] MED LIST changes: +LISI10TA4; +METF500T13
== END ==
LOC: M SFHCPLAZ 10:39
PROVIDERS: ATTEND Physician Assistant
DX: N30.01 Acute cystitis with hematuria (principal)

== ENCOUNTER → 2020-06-28 | Outpatient (CLI) | payer BC ==
--- NOTE | 2020-06-28 10:25 | REPMRS ---
Patient History The patient states she had a clinical breast exam in June 2020.Family history of breast cancer under age 50 in maternal aunt. Digital Woman Screen Mammo: June 28, 2020 - Exam #: [id number] Bilateral CC and MLO view(s) were taken. Technologist: Marleny Reyna, Technologist Prior study comparison: December 03, 2016, bilateral digital mammo screening bilat, performed at [facility]. FINDINGS: There are scattered fibroglandular densities. The Volpara volumetric breast density category is:B. There has been no change in the appearance of the mammogram from the prior studies. There is a mild amount of scattered fibroglandular density which is fairly symmetric. There is no interval development of dominant mass, architectural distortion, or grouped microcalcification suggestive of malignancy. 3-D tomosynthesis shows no additional findings. Assessment: BI-RADS/ACR category 1 mammogram. Negative Mammogram. Recommendation Routine screening mammogram of both breasts in 1 year (for women over age 40). This patient's [facility] Lifetime Breast Cancer Risk is estimated at 11.0 %. This mammogram was interpreted with the aid of an FDA-approved computer-aided dectection system. Electronically Signed By: Phillip Shukla MD 06/28/20 1024
== END ==
LOC: M WHC 08:39
PROVIDERS: ATTEND Physician Assistant Medical
DX: Z12.31 Encounter for screening mammogram for malignant neoplasm of breast (principal)

== ENCOUNTER → 2020-10-31 | Outpatient (REF) | payer BC ==
[~2020-10-31] MED LIST changes: +CEPH500C PO; -LISI-538; +LISI10TA22; -LISI10TA4; +LISI20TA33
[2020-10-31 14:26] LABS: CHOLESTEROL RISK RATIO 1.543 (<5); FREE T4 0.89 NG/DL (0.76-1.46); THYROID STIMULATING HORMONE 2.9 uIU/ML (0.358-3.740)
== END ==
LOC: M SFHCPLAZ 08:59
PROVIDERS: ATTEND Physician Assistant Medical
DX: E03.9 Hypothyroidism, unspecified (principal); Z13.220 Encounter for screening for lipoid disorders

== ENCOUNTER 2020-11-01 09:57 | Emergency (ER) | payer BC ==
[~2020-11-01] VITALS: Ht 157.5 cm; Wt 78.1 kg
[~2020-11-01 09:57] MED LIST changes: -CEPH500C PO
[2020-11-01] MEDS ORDERED: CEPH500C PO (10:18)
--- NOTE | 2020-11-01 11:59 | REP ---
INDICATION: fall with injury to face. COMPARISON: None. TECHNIQUE: Axial CT images with multiplanar reformations. FINDINGS: No acute bleed or acute large vessel territorial infarct. Ventricles, cisterns and sulci are within normal limits. No mass effect or midline shift. No abnormal fluid collections. There is evidence of nasal bone fracture and abnormality of the left orbits/sinuses further detailed on CT maxillofacial. There remainder of the paranasal sinuses and the mastoid air cells are clear. IMPRESSION: No acute intracranial bleed or skull fracture. Facial bones further detailed on CT maxillofacial. <Electronically signed by Luis Remy > 11/01/20 [id number]
--- NOTE | 2020-11-01 12:03 | REP ---
INDICATION: fall with injury to face. COMPARISON: None. TECHNIQUE: Axial CT images with multiplanar reformations. FINDINGS: There is a minimally comminuted nasal bones fracture. There is evidence of chronic sinus disease on the left, the left maxillary sinus is small and atelectatic and with thickened bony margins. There is opacification of the left maxillary sinus inferiorly and posteriorly. The remainder of the paranasal sinuses are clear. There is a leftward nasal septal deviation. Visualized dentition is unremarkable. IMPRESSION: Minimally comminuted nasal bones fractures. Chronic left maxillary sinusitis. The remainder of the sinuses are clear. <Electronically signed by Luis Remy > 11/01/20 [id number]
--- NOTE | 2020-11-01 12:07 | REP ---
INDICATION: fall with injury to face. COMPARISON: None. TECHNIQUE: Axial CT images with multiplanar reformations. FINDINGS: There is straightening of the cervical spine in absence of normal cervical lordosis. No evidence of an acute fracture or malalignment. There is a slight anterolisthesis of C3 over C4. No definite high-grade canal stenosis. There is significant degenerative disc disease with loss of disc space and anterior osteophytic spurring. There is multilevel foraminal narrowing secondary to osteophyte formation, appears limiting at C4-5 and C6-7 levels on the left, C4-5 and C5-6 levels on the right. IMPRESSION: No acute fracture or malalignment. Straightening of the cervical spine in absence of normal cervical lordosis. This may be seen in the setting of posttraumatic muscular spasm. Degenerative changes with multilevel foraminal narrowing. No definite canal stenosis. Consider MRI for further evaluation as clinically indicated. <Electronically signed by Luis Remy > 11/01/20 [id number]
[2020-11-01 13:29] VITALS: BP 200/113
== END 2020-11-01 13:31 | disposition home or self-care (01) ==
LOC: M ED 09:57
DX: S02.2XXA Fracture of nasal bones, initial encounter for closed fracture (principal); G44.309 Post-traumatic headache, unspecified, not intractable; I10 Essential (primary) hypertension; E11.9 Type 2 diabetes mellitus without complications; Z98.84 Bariatric surgery status; Z79.84 Long term (current) use of oral hypoglycemic drugs; Z79.899 Other long term (current) drug therapy; Y92.009 Unspecified place in unspecified non-institutional (private) residence as the place of occurrence of the external cause; Y93.9 Activity, unspecified; Y99.9 Unspecified external cause status

== ENCOUNTER → 2020-12-15 | Outpatient (REF) | payer BC ==
[~2020-12-15] MED LIST changes: +CEPH500C PO
[2020-12-15 14:25] LABS: ALT/SGPT 32 U/L (12-78); BILIRUBIN,TOTAL 0.4 MG/DL (0.2-1.0); BLOOD UREA NITROGEN 22 MG/DL (7-18); CALCIUM LEVEL 9.8 MG/DL (8.8-10.2); CARBON DIOXIDE LEVEL 30 MEQ/L (21-32); CHLORIDE LEVEL 104 MEQ/L (98-107); FREE T4 1.01 NG/DL (0.76-1.46); GLOMERULAR FILTRATION RATE > 60.0 (>45); GLUCOSE, FASTING 78 MG/DL (70-100); POTASSIUM SERUM 4.6 MEQ/L (3.5-5.1); SODIUM LEVEL 139 MEQ/L (136-145); TOTAL PROTEIN 7.7 GM/DL (6.4-8.2)
== END ==
LOC: M SFHCPLAZ 11:48
PROVIDERS: ATTEND Physician Assistant Medical
DX: E03.9 Hypothyroidism, unspecified (principal); E11.9 Type 2 diabetes mellitus without complications

== ENCOUNTER 2021-02-28 02:55 | Emergency (ER) | payer BC ==
[~2021-02-28] VITALS: Ht 157.5 cm; Wt 78.4 kg
[2021-02-28 03:50] LABS: BASO % 0.7 % (0.0-1.0); EOS # 0.1 10^3/uL (0.0-0.5); EOS % 1.5 % (0.0-3.0); HEMATOCRIT 38.7 % (36.0-47.0); LYMPH # 1.8 10^3/uL (1.5-5.0); MEAN CORPUSCULAR HEMOGLOBIN 32.8 pg (27.0-33.0); MEAN CORPUSCULAR HGB CONC 33.6 g/dl (32.0-36.5); MEAN CORPUSCULAR VOLUME 97.7 fl (80.0-96.0); MONO # 0.6 10^3/uL (0.0-0.8); MONO % 10.1 % (2.0-8.0); NEUTROPHILS # 3.6 10^3/uL (1.5-8.5); NEUTROPHILS % 58.4 % (36.0-66.0); PLATELET COUNT, AUTOMATED 234 10^3/uL (150-450); RED BLOOD COUNT 3.96 10^6/uL (4.00-5.40); WHITE BLOOD COUNT 6.1 10^3/uL (4.0-10.0)
--- NOTE | 2021-02-28 04:50 | REPVR ---
PROCEDURE INFORMATION: Exam: XR Chest Exam date and time: 02/28/2021 3:46 AM Age: 60 years old Clinical indication: Pain; Other: Not specified; Additional info: Chest pain TECHNIQUE: Imaging protocol: XR of the chest. Views: 1 view. COMPARISON: CR Chest, 2 view PA, Lat 04/24/2020 5:07 PM FINDINGS: Lungs: Unremarkable. No consolidation. Pleural spaces: Unremarkable. No pleural effusion. No pneumothorax. Heart/Mediastinum: Unremarkable. No cardiomegaly. Bones/joints: Thoracic spine osteophytes seen. Right AC joint degenerative changes seen.. IMPRESSION: No acute findings. Electronically signed by: Gregorio Zamora On 02/28/2021 04:50:43 AM
[2021-02-28 05:22] LABS: BLOOD UREA NITROGEN 10 MG/DL (7-18); CALCIUM LEVEL 8.5 MG/DL (8.8-10.2); CARBON DIOXIDE LEVEL 30 MEQ/L (21-32); CHLORIDE LEVEL 105 MEQ/L (98-107); CREATININE FOR GFR 0.49 MG/DL (0.55-1.30); GLOMERULAR FILTRATION RATE > 60.0 (>45); GLUCOSE, FASTING 88 MG/DL (70-100); POTASSIUM SERUM 3.5 MEQ/L (3.5-5.1); SODIUM LEVEL 141 MEQ/L (136-145)
[2021-02-28] MEDS ORDERED: LABETALOL 100MG/20ML VIAL IV STA (05:50)
[2021-02-28] MEDS ORDERED: LISI20TA33 PO (06:51)
[2021-02-28 07:15] VITALS: BP 155/83
[2021-02-28 07:20] VITALS: BP 155/83
--- NOTE | 2021-02-28 07:25 | ECGEPIP ---
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
== END 2021-02-28 07:33 | disposition home or self-care (01) ==
LOC: M ED 02:55
DX: I10 Essential (primary) hypertension (principal); R07.9 Chest pain, unspecified; E11.9 Type 2 diabetes mellitus without complications; E03.9 Hypothyroidism, unspecified; Z79.899 Other long term (current) drug therapy

== ENCOUNTER → 2021-04-14 | Outpatient (CLI) | payer BC ==
[~2021-04-14] MED LIST changes: -FLUO20CA22; +FLUO20CA22 PO; +LEVO25TA5 PO; +LISI-898 PO; +LISI20TA33 PO; +METF500T13 PO; -SIMV20TA22; +SIMV20TA22 PO
== END ==
LOC: M LABSMTC 09:20
PROVIDERS: ATTEND Anesthesiology
DX: Z20.828 Contact with and (suspected) exposure to other viral communicable diseases (principal)

== ENCOUNTER 2021-04-19 06:36 | Day surgery (SDC) | payer BC ==
[~2021-04-19] VITALS: Ht 157.5 cm; Wt 76.2 kg
[~2021-04-19 06:36] MED LIST changes: +NS 1,000 ML IV ONE
[2021-04-19] MEDS ORDERED: LIDOCAINE 2% 100MG/5ML SDV (FOR ANES.) As Ordered ONE (07:09)
[2021-04-19] MEDS ORDERED: propofoL 500 MG/50 ML VIAL As Ordered ONE (07:53)
--- NOTE | 2021-04-19 08:08 | ROOR ---
Patient Name: Tawnya Hawthorne Procedure Date: 04/19/2021 7:30 AM Date of : 1960 Age: 60 Room: [facility] Gender: Female Note Status: Finalized Procedure: Colonoscopy Indications: Screening for colorectal malignant neoplasm Providers: Clarence Delarosa MD Referring MD: Joselyn ECHEVERRIA Requesting Provider: Medicines: Monitored Anesthesia Care Complications: No immediate complications. Procedure: Pre-Anesthesia Assessment: - Prior to the procedure, a History and Physical was performed, and patient medications and allergies were reviewed. The patient is competent. The risks and benefits of the procedure and the sedation options and risks were discussed with the patient. All questions were answered and informed consent was obtained. Patient identification and proposed procedure were verified by the physician, the nurse and the anesthesiologist in the procedure room. Mental Status Examination: alert and oriented. Airway Examination: normal oropharyngeal airway and neck mobility. Respiratory Examination: clear to auscultation. CV Examination: normal. Prophylactic Antibiotics: The patient does not require prophylactic antibiotics. Prior Anticoagulants: The patient has taken no previous anticoagulant or antiplatelet agents. ASA Grade Assessment: II - A patient with mild systemic disease. After reviewing the risks and benefits, the patient was deemed in satisfactory condition to undergo the procedure. The anesthesia plan was to use monitored anesthesia care (MAC). Immediately prior to administration of medications, the patient was re-assessed for adequacy to receive sedatives. The heart rate, respiratory rate, oxygen saturations, blood pressure, adequacy of pulmonary ventilation, and response to care were monitored throughout the procedure. The physical status of the patient was re-assessed after the procedure. The Colonoscope was introduced through the anus and advanced to the terminal ileum, with identification of the appendiceal orifice and IC valve. The colonoscopy was performed without difficulty. The patient tolerated the procedure well. The quality of the bowel preparation was good. The terminal ileum, ileocecal valve, appendiceal orifice, and rectum were photographed. Scope insertion time was 2 minutes. Scope withdrawal time was 9 minutes. The total duration of the procedure was 12 minutes. Findings: The perianal and digital rectal examinations were normal. Pertinent negatives include normal sphincter tone. A 10 mm polyp was found in the descending colon. The polyp was sessile. The polyp was removed with a hot snare. Resection and retrieval were complete. Verification of patient identification for the specimen was done by the physician and nurse using the patient's name, date and medical record number. Estimated blood loss was minimal. Multiple small and large-mouthed diverticula were found in the sigmoid colon. There was no evidence of diverticular bleeding. Non-bleeding external and internal hemorrhoids were found during retroflexion. The hemorrhoids were medium-sized. Impression: - One 10 mm polyp in the descending colon, removed with a hot snare. Resected and retrieved. - Moderate diverticulosis in the sigmoid colon. There was no evidence of diverticular bleeding. - Non-bleeding external and internal hemorrhoids. Recommendation: - Patient has a contact number available for emergencies. The signs and symptoms of potential delayed complications were discussed with the patient. Return to normal activities tomorrow. Written discharge instructions were provided to the patient. - High fiber diet. - Continue present medications. - Use fiber, for example Citrucel, Fibercon, Konsyl or Metamucil. - Await pathology results. - Repeat colonoscopy in 5 years for surveillance based on pathology results. - Telephone GI clinic for pathology results in 2 weeks. - Return to primary care physician. - Return to GI clinic in 5 years. Procedure Code(s): --- Professional --- 55353, Colonoscopy, flexible; with removal of tumor(s), polyp(s), or other lesion(s) by snare technique Diagnosis Code(s): --- Professional --- Z12.11, Encounter for screening for malignant neoplasm of colon K63.5, Polyp of colon K64.8, Other hemorrhoids K57.30, Diverticulosis of large intestine without perforation or abscess without bleeding CPT copyright 2019 [employer]. All rights reserved. The codes documented in this report are preliminary and upon sink maker review may be revised to meet current compliance requirements. Clarence Delarosa MD Clarence Delarosa MD 04/19/2021 8:07:51 AM Electronically signed by Clarence Delarosa MD Number of Addenda: 0 Note Initiated On: 04/19/2021 7:30 AM Estimated Blood Loss: Estimated blood loss: none.
[2021-04-19 08:15] VITALS: BP 157/84
== END 2021-04-19 08:34 | disposition home or self-care (01) ==
LOC: M OPP 06:36
PROVIDERS: ATTEND Internal Medicine Gastroenterology
DX: Z12.11 Encounter for screening for malignant neoplasm of colon (principal); D12.6 Benign neoplasm of colon, unspecified; K57.30 Diverticulosis of large intestine without perforation or abscess without bleeding; K64.8 Other hemorrhoids; E11.9 Type 2 diabetes mellitus without complications; G47.30 Sleep apnea, unspecified; E03.9 Hypothyroidism, unspecified; Z79.84 Long term (current) use of oral hypoglycemic drugs; Z79.899 Other long term (current) drug therapy

== ENCOUNTER → 2021-06-13 | Outpatient (CLI) | payer BC ==
[~2021-06-13] MED LIST changes: -NS 1,000 ML IV ONE
[2021-06-13 11:06] LABS: BASO # 0.1 10^3/uL (0.0-0.2); BASO % 0.8 % (0.0-1.0); EOS # 0.1 10^3/uL (0.0-0.5); EOS % 2.1 % (0.0-3.0); HEMATOCRIT 35.8 % (36.0-47.0); HEMOGLOBIN 11.7 g/dl (12.0-15.5); LYMPH # 2.1 10^3/uL (1.5-5.0); LYMPH % 31.7 % (24.0-44.0); MEAN CORPUSCULAR HEMOGLOBIN 33.7 pg (27.0-33.0); MEAN CORPUSCULAR HGB CONC 32.7 g/dl (32.0-36.5); MEAN CORPUSCULAR VOLUME 103.2 fl (80.0-96.0); MONO # 0.6 10^3/uL (0.0-0.8); MONO % 8.7 % (2.0-8.0); NEUTROPHILS # 3.7 10^3/uL (1.5-8.5); NEUTROPHILS % 56.4 % (36.0-66.0); PLATELET COUNT, AUTOMATED 265 10^3/uL (150-450); RED BLOOD COUNT 3.47 10^6/uL (4.00-5.40); WHITE BLOOD COUNT 6.5 10^3/uL (4.0-10.0)
[2021-06-13 11:43] LABS: ERYTHROCYTE SEDIMENTATION RATE 20 mm/hr (0-30)
[2021-06-13 12:04] LABS: ALBUMIN 3.9 GM/DL (3.2-5.2); ALT/SGPT 46 U/L (12-78); BILIRUBIN,TOTAL 0.5 MG/DL (0.2-1.0); BLOOD UREA NITROGEN 15 MG/DL (7-18); CARBON DIOXIDE LEVEL 29 MEQ/L (21-32); CHLORIDE LEVEL 104 MEQ/L (98-107); GLOMERULAR FILTRATION RATE > 60.0 (>45); GLUCOSE, FASTING 84 MG/DL (70-100); POTASSIUM SERUM 4.7 MEQ/L (3.5-5.1); SODIUM LEVEL 139 MEQ/L (136-145); TOTAL PROTEIN 7.4 GM/DL (6.4-8.2); URIC ACID 4.4 MG/DL (2.6-6.0)
== END ==
LOC: M PLALAB 07:40
PROVIDERS: ATTEND Nurse Practitioner Family
DX: M25.561 Pain in right knee (principal)

== ENCOUNTER → 2021-07-04 | Outpatient (CLI) | payer BC ==
[2021-07-04 13:39] LABS: INR 0.99; PROTHROMBIN TIME 13.5 SECONDS (12.7-14.5)
[2021-07-04 14:05] LABS: HEMOGLOBIN A1c 5.1 %
[2021-07-04 14:09] LABS: FREE T4 0.83 NG/DL (0.76-1.46); HEPATITIS B SURFACE ANTIBODY NEGATIVE (POSITIVE); HEPATITIS B SURFACE ANTIGEN NEGATIVE (NEGATIVE)
[2021-07-04 14:35] LABS: HEPATITIS C VIRUS ABY INDEX 0.1 INDEX (<0.8)
== END ==
LOC: M PLALAB 10:14
PROVIDERS: ATTEND Physician Assistant Medical
DX: E11.9 Type 2 diabetes mellitus without complications (principal); R79.89 Other specified abnormal findings of blood chemistry

== ENCOUNTER → 2021-09-06 | Outpatient (CLI) | payer BC ==
[~2021-09-06] MED LIST changes: -LISI-898 PO; +LISI5TAB11 PO
== END ==
LOC: M RAD 10:37
PROVIDERS: ATTEND Physician Assistant
DX: M25.562 Pain in left knee (principal)

== ENCOUNTER → 2021-09-06 | Outpatient (CLI) | payer BC | LOC: M WUC 09:35 | PROVIDERS: ATTEND Physician Assistant | DX: M17.12 Unilateral primary osteoarthritis, left knee (principal) ==

== ENCOUNTER → 2021-10-05 | Outpatient (CLI) | payer BC | LOC: M PLALAB 07:44 | PROVIDERS: ATTEND Physician Assistant Medical | DX: R79.89 Other specified abnormal findings of blood chemistry (principal) ==

== ENCOUNTER 2021-11-06 06:20 | Emergency (ER) | payer BC ==
[~2021-11-06] VITALS: Ht 157.5 cm; Wt 76.6 kg
[2021-11-06 08:04] VITALS: BP 165/88
[2021-11-06 09:40] LABS: RSV AMPLIFICATION NEGATIVE (NEGATIVE)
== END 2021-11-06 08:44 | disposition home or self-care (01) ==
LOC: M ED 06:20 → EDBD 06:20 → M ED 08:44
DX: R25.1 Tremor, unspecified (principal); E11.9 Type 2 diabetes mellitus without complications; I10 Essential (primary) hypertension; F10.10 Alcohol abuse, uncomplicated; Z98.84 Bariatric surgery status; Z79.811 Long term (current) use of aromatase inhibitors; Z79.4 Long term (current) use of insulin; Z79.899 Other long term (current) drug therapy

== ENCOUNTER → 2022-06-27 | Outpatient (CLI) | payer OTHER ==
[2022-06-27 15:24] LABS: BASO # 0.1 10^3/uL (0.0-0.2); BASO % 1.2 % (0.0-1.0); EOS # 0.1 10^3/uL (0.0-0.5); EOS % 0.8 % (0.0-3.0); HEMATOCRIT 38.4 % (36.0-47.0); HEMOGLOBIN 12.4 g/dl (12.0-15.5); LYMPH # 1.9 10^3/uL (1.5-5.0); LYMPH % 31.2 % (24.0-44.0); MEAN CORPUSCULAR HEMOGLOBIN 34.7 pg (27.0-33.0); MEAN CORPUSCULAR HGB CONC 32.3 g/dl (32.0-36.5); MEAN CORPUSCULAR VOLUME 107.6 fl (80.0-96.0); MONO # 0.8 10^3/uL (0.0-0.8); NEUTROPHILS # 3.2 10^3/uL (1.5-8.5); NEUTROPHILS % 53.5 % (36.0-66.0); PLATELET COUNT, AUTOMATED 305 10^3/uL (150-450); RED BLOOD COUNT 3.57 10^6/uL (4.00-5.40)
[2022-06-27 15:32] LABS: ALBUMIN 3.9 G/DL (3.2-5.2); ALKALINE PHOSPHATASE 109 U/L (46-116); ALT/SGPT 96 U/L (7.0-40); AST/SGOT 155 U/L (<34); BILIRUBIN,TOTAL 0.6 MG/DL (0.3-1.2); BLOOD UREA NITROGEN 8 MG/DL (9-23); CALCIUM LEVEL 8.8 MG/DL (8.3-10.6); CARBON DIOXIDE LEVEL 31 MMOL/L (20-31); CHLORIDE LEVEL 99 MMOL/L (98-107); CREATININE FOR GFR 0.55 MG/DL (0.55-1.30); GLOMERULAR FILTRATION RATE > 60.0 (>45); GLUCOSE, FASTING 80 MG/DL (74-106); IRON (FE) 174 UG/DL (50-170); POTASSIUM SERUM 4.2 MMOL/L (3.5-5.1); SODIUM LEVEL 141 MMOL/L (136-145); TOTAL PROTEIN 7.3 G/DL (5.7-8.2)
[2022-06-27 15:34] LABS: FERRITIN 849.4 NG/ML (7.3-270.7); THYROID STIMULATING HORMONE 7.907 uIU/ML (0.55-4.78); TOTAL 25(OH) VITAMIN D 12.6 NG/ML (20.0-100.0)
[2022-06-27 15:35] LABS: FREE T4 0.94 NG/DL (0.89-1.76); VITAMIN B12 LEVEL 405 PG/ML (211-911)
[2022-06-27 17:27] LABS: HEMOGLOBIN A1c 4.4 % (4.0-6.0)
== END ==
LOC: M PLAIMG 09:52
PROVIDERS: ATTEND Physician Assistant Medical
DX: I10 Essential (primary) hypertension (principal); Z98.84 Bariatric surgery status; M47.812 Spondylosis without myelopathy or radiculopathy, cervical region; R79.89 Other specified abnormal findings of blood chemistry; E03.9 Hypothyroidism, unspecified; M17.11 Unilateral primary osteoarthritis, right knee

== ENCOUNTER → 2022-06-28 | Outpatient (CLI) | payer OTHER ==
[2022-06-28 15:52] LABS: BASO # 0.1 10^3/uL (0.0-0.2); BASO % 1.2 % (0.0-1.0); EOS % 0.5 % (0.0-3.0); HEMATOCRIT 39.3 % (36.0-47.0); LYMPH # 1.5 10^3/uL (1.5-5.0); LYMPH % 19.1 % (24.0-44.0); MEAN CORPUSCULAR HEMOGLOBIN 34.7 pg (27.0-33.0); MEAN CORPUSCULAR HGB CONC 33.1 g/dl (32.0-36.5); MEAN CORPUSCULAR VOLUME 104.8 fl (80.0-96.0); MONO # 0.7 10^3/uL (0.0-0.8); MONO % 9.1 % (2.0-8.0); NEUTROPHILS # 5.4 10^3/uL (1.5-8.5); NEUTROPHILS % 69.8 % (36.0-66.0); PLATELET COUNT, AUTOMATED 301 10^3/uL (150-450); RED BLOOD COUNT 3.75 10^6/uL (4.00-5.40); WHITE BLOOD COUNT 7.7 10^3/uL (4.0-10.0)
[2022-06-28 16:11] LABS: HEMOGLOBIN A1c 4.4 % (4.0-6.0)
[2022-06-28 16:22] LABS: VITAMIN B12 LEVEL 435 PG/ML (211-911)
[2022-06-28 16:23] LABS: TOTAL 25(OH) VITAMIN D 11.2 NG/ML (20.0-100.0)
[2022-06-28 16:24] LABS: AMYLASE 54 U/L (30-118); FERRITIN 835.7 NG/ML (7.3-270.7); THYROID STIMULATING HORMONE 16.382 uIU/ML (0.55-4.78)
[2022-06-28 16:51] LABS: ALKALINE PHOSPHATASE 107 U/L (46-116); ALT/SGPT 73 U/L (7.0-40); AST/SGOT 113 U/L (<34); BILIRUBIN,TOTAL 1.2 MG/DL (0.3-1.2); BLOOD UREA NITROGEN 13 MG/DL (9-23); CALCIUM LEVEL 9.2 MG/DL (8.3-10.6); CARBON DIOXIDE LEVEL 27 MMOL/L (20-31); CHLORIDE LEVEL 96 MMOL/L (98-107); CREATININE FOR GFR 0.61 MG/DL (0.55-1.30); GLOMERULAR FILTRATION RATE > 60.0 (>45); GLUCOSE, FASTING 136 MG/DL (74-106); LIPASE 50 U/L (12-53); MAGNESIUM LEVEL 0.9 MG/DL (1.8-2.4); POTASSIUM SERUM 4.5 MMOL/L (3.5-5.1); SODIUM LEVEL 137 MMOL/L (136-145); TOTAL PROTEIN 7.3 G/DL (5.7-8.2)
[2022-06-28 17:54] LABS: FREE T4 1.17 NG/DL (0.89-1.76)
[2022-06-28 18:04] LABS: IRON (FE) 86 UG/DL (50-170)
== END ==
LOC: M PLALAB 12:56
PROVIDERS: ATTEND Physician Assistant Medical
DX: M47.812 Spondylosis without myelopathy or radiculopathy, cervical region (principal); R79.89 Other specified abnormal findings of blood chemistry; I10 Essential (primary) hypertension; E03.9 Hypothyroidism, unspecified; Z98.84 Bariatric surgery status; F10.931 Alcohol use, unspecified with withdrawal delirium

== ENCOUNTER → 2022-07-03 | Outpatient (CLI) | payer OTHER ==
[2022-07-03 17:39] LABS: BASO # 0.1 10^3/uL (0.0-0.2); BASO % 0.9 % (0.0-1.0); EOS # 0.1 10^3/uL (0.0-0.5); EOS % 0.9 % (0.0-3.0); HEMATOCRIT 37.4 % (36.0-47.0); HEMOGLOBIN 12.3 g/dl (12.0-15.5); LYMPH # 2.3 10^3/uL (1.5-5.0); LYMPH % 22.9 % (24.0-44.0); MEAN CORPUSCULAR HEMOGLOBIN 34.8 pg (27.0-33.0); MEAN CORPUSCULAR HGB CONC 32.9 g/dl (32.0-36.5); MEAN CORPUSCULAR VOLUME 105.9 fl (80.0-96.0); MONO % 9.5 % (2.0-8.0); NEUTROPHILS # 6.5 10^3/uL (1.5-8.5); NEUTROPHILS % 65.4 % (36.0-66.0); PLATELET COUNT, AUTOMATED 306 10^3/uL (150-450); RED BLOOD COUNT 3.53 10^6/uL (4.00-5.40)
[2022-07-03 18:02] LABS: URIC ACID 6.7 MG/DL (3.1-7.8)
[2022-07-03 18:04] LABS: C REACTIVE PROTEIN QUANTITATIV < 0.40 MG/DL (<1.0)
[2022-07-03 18:05] LABS: CHOLESTEROL LEVEL 187 MG/DL (<200); HDL CHOLESTEROL 66.6 MG/DL (>40); LDL CHOLESTEROL 97.6 MG/DL (<100); NON-HDL-C 120 MG/DL; TRIGLYCERIDES LEVEL 114 MG/DL (<150)
[2022-07-03 18:13] LABS: ERYTHROCYTE SEDIMENTATION RATE 21 mm/hr (0-30)
== END ==
LOC: M PLALAB 16:14
PROVIDERS: ATTEND Physician Assistant Medical
DX: M85.88 Other specified disorders of bone density and structure, other site (principal); Z13.220 Encounter for screening for lipoid disorders; M79.89 Other specified soft tissue disorders

== ENCOUNTER → 2022-07-03 | Outpatient (CLI) | payer OTHER | LOC: M WHC 15:36 | PROVIDERS: ATTEND Physician Assistant Medical | DX: Z12.31 Encounter for screening mammogram for malignant neoplasm of breast (principal) ==

== ENCOUNTER → 2022-10-01 | Outpatient (CLI) | payer OTHER ==
[2022-10-01 15:51] LABS: HEMOGLOBIN A1c 4.9 % (4.0-6.0)
[2022-10-01 15:58] LABS: FREE T4 0.95 NG/DL (0.89-1.76)
[2022-10-01 16:10] LABS: ALBUMIN 3.5 G/DL (3.2-5.2); ALKALINE PHOSPHATASE 106 U/L (46-116); ALT/SGPT 48 U/L (7.0-40); AST/SGOT 91 U/L (<34); BILIRUBIN,TOTAL 1.4 MG/DL (0.3-1.2); BLOOD UREA NITROGEN 15 MG/DL (9-23); CALCIUM LEVEL 8.6 MG/DL (8.3-10.6); CARBON DIOXIDE LEVEL 26 MMOL/L (20-31); CHLORIDE LEVEL 101 MMOL/L (98-107); CREATININE FOR GFR 0.93 MG/DL (0.55-1.30); GLOMERULAR FILTRATION RATE > 60.0 (>45); GLUCOSE, FASTING 103 MG/DL (74-106); SODIUM LEVEL 137 MMOL/L (136-145)
== END ==
LOC: M PLALAB 12:50
PROVIDERS: ATTEND Physician Assistant Medical
DX: R79.89 Other specified abnormal findings of blood chemistry (principal); E11.9 Type 2 diabetes mellitus without complications; E03.9 Hypothyroidism, unspecified

== ENCOUNTER → 2022-10-02 | Outpatient (CLI) | payer OTHER | LOC: M PLALAB 12:13 | PROVIDERS: ATTEND Physician Assistant Medical | DX: R79.89 Other specified abnormal findings of blood chemistry (principal) ==

== ENCOUNTER → 2022-10-17 | Outpatient (CLI) | payer OTHER | LOC: M RAD 07:55 | PROVIDERS: ATTEND Physician Assistant Medical | DX: R74.01 Elevation of levels of liver transaminase levels (principal) ==

== ENCOUNTER → 2022-11-01 | Outpatient (CLI) | payer OTHER ==
[2022-11-01 14:16] LABS: INR 0.97; PARTIAL THROMBOPLASTIN TIME 26.7 SECONDS (24.8-34.2); PROTHROMBIN TIME 13.1 SECONDS (12.5-14.5)
[2022-11-01 14:24] LABS: BLOOD UREA NITROGEN 15 MG/DL (9-23); CALCIUM LEVEL 8.3 MG/DL (8.3-10.6); CARBON DIOXIDE LEVEL 29 MMOL/L (20-31); CHLORIDE LEVEL 102 MMOL/L (98-107); GLOMERULAR FILTRATION RATE > 60.0 (>45); GLUCOSE, FASTING 78 MG/DL (74-106); MAGNESIUM LEVEL 1.2 MG/DL (1.8-2.4); POTASSIUM SERUM 3.5 MMOL/L (3.5-5.1); SODIUM LEVEL 141 MMOL/L (136-145)
== END ==
LOC: M PLALAB 09:13
PROVIDERS: ATTEND Physician Assistant Medical
DX: F10.10 Alcohol abuse, uncomplicated (principal)

== ENCOUNTER → 2022-11-26 | Outpatient (CLI) | payer OTHER ==
[~2022-11-26] MED LIST changes: -VITA500064 PO; +VITA500065 PO
== END ==
LOC: M PLAIMG 11:03
PROVIDERS: ATTEND Physician Assistant
DX: M25.561 Pain in right knee (principal)

== ENCOUNTER → 2022-12-06 | Outpatient (CLI) | payer OTHER | LOC: M WHC 08:27 | PROVIDERS: ATTEND Physician Assistant Medical | DX: M85.872 Other specified disorders of bone density and structure, left ankle and foot (principal) ==

== ENCOUNTER 2023-01-07 08:30 | Outpatient (RCR) | payer OTHER | END 2023-01-17 | LOC: M PT 08:30 | PROVIDERS: ATTEND Physician Assistant | DX: M51.36 Other intervertebral disc degeneration, lumbar region (principal); M12.9 Arthropathy, unspecified; M47.812 Spondylosis without myelopathy or radiculopathy, cervical region; M25.562 Pain in left knee; M25.561 Pain in right knee ==

== ENCOUNTER → 2023-03-21 | Outpatient (CLI) | payer OTHER ==
[2023-03-21 11:07] LABS: ALBUMIN 3.9 G/DL (3.2-5.2); ALKALINE PHOSPHATASE 104 U/L (46-116); ALT/SGPT 84 U/L (7.0-40); AST/SGOT 214 U/L (<34); BILIRUBIN,TOTAL 0.9 MG/DL (0.3-1.2); BLOOD UREA NITROGEN 17 MG/DL (9-23); CALCIUM LEVEL 9.3 MG/DL (8.3-10.6); CARBON DIOXIDE LEVEL 28 MMOL/L (20-31); CHLORIDE LEVEL 97 MMOL/L (98-107); CHOLESTEROL LEVEL 193 MG/DL (<200); CHOLESTEROL RISK RATIO 2.36 (<5); CREATININE FOR GFR 0.65 MG/DL (0.55-1.30); GLOMERULAR FILTRATION RATE > 60.0 (>45); GLUCOSE, FASTING 82 MG/DL (74-106); HDL CHOLESTEROL 81.6 MG/DL (>40); LDL CHOLESTEROL 91.2 MG/DL (<100); NON-HDL-C 111.4 MG/DL; POTASSIUM SERUM 4.1 MMOL/L (3.5-5.1); SODIUM LEVEL 136 MMOL/L (136-145); TOTAL PROTEIN 7.1 G/DL (5.7-8.2); TRIGLYCERIDES LEVEL 101 MG/DL (<150)
== END ==
LOC: M PLALAB 07:38
PROVIDERS: ATTEND Physician Assistant Medical
DX: R79.89 Other specified abnormal findings of blood chemistry (principal); Z13.220 Encounter for screening for lipoid disorders

== ENCOUNTER 2023-04-27 08:10 | Emergency (ER) | payer MEDICAID, OTHER ==
[~2023-04-27] VITALS: Ht 157.5 cm; Wt 65.9 kg
[2023-04-27 10:20] LABS: BASO % 0.4 % (0.0-1.0); EOS % 0.2 % (0.0-3.0); HEMATOCRIT 26.5 % (36.0-47.0); HEMOGLOBIN 9.3 g/dl (12.0-15.5); LYMPH # 0.7 10^3/uL (1.5-5.0); LYMPH % 7.9 % (24.0-44.0); MEAN CORPUSCULAR HEMOGLOBIN 38.3 pg (27.0-33.0); MEAN CORPUSCULAR HGB CONC 35.1 g/dl (32.0-36.5); MEAN CORPUSCULAR VOLUME 109.1 fl (80.0-96.0); MONO # 0.2 10^3/uL (0.0-0.8); MONO % 2.8 % (2.0-8.0); NEUTROPHILS # 7.3 10^3/uL (1.5-8.5); NEUTROPHILS % 88.2 % (36.0-66.0); PLATELET COUNT, AUTOMATED 131 10^3/uL (150-450); RED BLOOD COUNT 2.43 10^6/uL (4.00-5.40); WHITE BLOOD COUNT 8.3 10^3/uL (4.0-10.0)
[2023-04-27 10:42] LABS: INR 1.1; PROTHROMBIN TIME 13.9 SECONDS (12.5-14.5)
[2023-04-27 10:45] LABS: AMPHETAMINES LEVEL URINE NEGATIVE (NEGATIVE)
[2023-04-27 10:46] LABS: BARBITURATES URINE NEGATIVE (NEGATIVE); BENZODIAZEPINES URINE NEGATIVE (NEGATIVE); COCAINE METABOLITE URINE NEGATIVE (NEGATIVE); METHADONE URINE NEGATIVE (NEGATIVE); OPIATES URINE NEGATIVE (NEGATIVE); PHENCYCLIDINE URINE NEGATIVE (NEGATIVE)
[2023-04-27 10:47] LABS: BLOOD UREA NITROGEN 18 MG/DL (9-23); CALCIUM LEVEL 8.8 MG/DL (8.3-10.6); CARBON DIOXIDE LEVEL 23 MMOL/L (20-31); CHLORIDE LEVEL 96 MMOL/L (98-107); CREATININE FOR GFR 0.56 MG/DL (0.55-1.30); GLOMERULAR FILTRATION RATE > 60.0 (>45); GLUCOSE, FASTING 75 MG/DL (74-106); POTASSIUM SERUM 3.3 MMOL/L (3.5-5.1); SODIUM LEVEL 133 MMOL/L (136-145)
[2023-04-27 10:48] LABS: CANNABINOIDS URINE POSITIVE (NEGATIVE)
[2023-04-27 12:01] VITALS: BP 125/71; TEMP 97.8; O2SAT 99
== END 2023-04-27 12:04 | disposition short-term general hospital (02) ==
LOC: EDBD 08:10 → M ED 08:10
DX: S06.5X0A Traumatic subdural hemorrhage without loss of consciousness, initial encounter (principal); Y04.0XXA Assault by unarmed brawl or fight, initial encounter; Y92.89 Other specified places as the place of occurrence of the external cause; Y93.89 Activity, other specified; Y99.8 Other external cause status; E11.40 Type 2 diabetes mellitus with diabetic neuropathy, unspecified; I10 Essential (primary) hypertension; G43.909 Migraine, unspecified, not intractable, without status migrainosus; F32.A Depression, unspecified; F41.9 Anxiety disorder, unspecified; Z79.84 Long term (current) use of oral hypoglycemic drugs; Z79.899 Other long term (current) drug therapy

== ENCOUNTER → 2023-07-25 | Outpatient (CLI) | payer OTHER ==
[2023-07-25 13:46] LABS: BASO # 0.1 10^3/uL (0.0-0.2); BASO % 1.3 % (0.0-1.0); EOS % 0.3 % (0.0-3.0); HEMATOCRIT 38.7 % (36.0-47.0); HEMOGLOBIN 12.8 g/dl (12.0-15.5); LYMPH # 0.9 10^3/uL (1.5-5.0); LYMPH % 11.9 % (24.0-44.0); MEAN CORPUSCULAR HEMOGLOBIN 33.2 pg (27.0-33.0); MEAN CORPUSCULAR HGB CONC 33.1 g/dl (32.0-36.5); MEAN CORPUSCULAR VOLUME 100.3 fl (80.0-96.0); MONO # 0.8 10^3/uL (0.0-0.8); MONO % 11.6 % (2.0-8.0); NEUTROPHILS # 5.3 10^3/uL (1.5-8.5); NEUTROPHILS % 74.5 % (36.0-66.0); PLATELET COUNT, AUTOMATED 248 10^3/uL (150-450); RED BLOOD COUNT 3.86 10^6/uL (4.00-5.40); WHITE BLOOD COUNT 7.1 10^3/uL (4.0-10.0)
[2023-07-25 13:54] LABS: INR 1.07; PROTHROMBIN TIME 13.6 SECONDS (12.5-14.5)
[2023-07-25 13:55] LABS: PARTIAL THROMBOPLASTIN TIME 27.6 SECONDS (24.8-34.2)
[2023-07-25 14:13] LABS: ALBUMIN 3.7 G/DL (3.2-5.2); ALKALINE PHOSPHATASE 75 U/L (46-116); ALT/SGPT 26 U/L (7.0-40); AST/SGOT 44 U/L (<34); BILIRUBIN,TOTAL 0.6 MG/DL (0.3-1.2); BLOOD UREA NITROGEN 12 MG/DL (9-23); CALCIUM LEVEL 8.9 MG/DL (8.3-10.6); CARBON DIOXIDE LEVEL 32 MMOL/L (20-31); CHLORIDE LEVEL 101 MMOL/L (98-107); CHOLESTEROL LEVEL 284 MG/DL (<200); CREATININE FOR GFR 0.42 MG/DL (0.55-1.30); GLOMERULAR FILTRATION RATE > 60.0 (>45); GLUCOSE, FASTING 107 MG/DL (74-106); HDL CHOLESTEROL 97.8 MG/DL (>40); IRON (FE) 125 UG/DL (50-170); LDL CHOLESTEROL 167.6 MG/DL (<100); NON-HDL-C 186.2 MG/DL; POTASSIUM SERUM 4.1 MMOL/L (3.5-5.1); SODIUM LEVEL 139 MMOL/L (136-145); TOTAL PROTEIN 7.4 G/DL (5.7-8.2); TRIGLYCERIDES LEVEL 93 MG/DL (<150)
[2023-07-25 14:14] LABS: FERRITIN 378.5 NG/ML (7.3-270.7); FREE T4 0.81 NG/DL (0.89-1.76); THYROID STIMULATING HORMONE 25.098 uIU/ML (0.55-4.78)
== END ==
LOC: M PLALAB 10:20
PROVIDERS: ATTEND Physician Assistant Medical
DX: F10.10 Alcohol abuse, uncomplicated (principal); E03.9 Hypothyroidism, unspecified; R79.89 Other specified abnormal findings of blood chemistry; Z13.220 Encounter for screening for lipoid disorders; D50.0 Iron deficiency anemia secondary to blood loss (chronic)

== ENCOUNTER → 2023-10-06 | Outpatient (REF) | payer OTHER ==
[2023-10-06 16:49] LABS: BASO % 0.4 % (0.0-1.0); EOS # 0.1 10^3/uL (0.0-0.5); EOS % 1.6 % (0.0-3.0); HEMATOCRIT 42.5 % (36.0-47.0); HEMOGLOBIN 14.2 g/dl (12.0-15.5); LYMPH # 2.2 10^3/uL (1.5-5.0); MEAN CORPUSCULAR HEMOGLOBIN 34.1 pg (27.0-33.0); MEAN CORPUSCULAR HGB CONC 33.4 g/dl (32.0-36.5); MEAN CORPUSCULAR VOLUME 102.2 fl (80.0-96.0); MONO # 0.8 10^3/uL (0.0-0.8); MONO % 9.4 % (2.0-8.0); NEUTROPHILS # 5.6 10^3/uL (1.5-8.5); NEUTROPHILS % 63.3 % (36.0-66.0); PLATELET COUNT, AUTOMATED 194 10^3/uL (150-450); RED BLOOD COUNT 4.16 10^6/uL (4.00-5.40); WHITE BLOOD COUNT 8.9 10^3/uL (4.0-10.0)
[2023-10-06 16:57] LABS: ALBUMIN 3.8 G/DL (3.2-5.2); ALKALINE PHOSPHATASE 76 U/L (46-116); ALT/SGPT 26 U/L (7.0-40); AST/SGOT 31 U/L (<34); BILIRUBIN,TOTAL 0.9 MG/DL (0.3-1.2); BLOOD UREA NITROGEN 10 MG/DL (9-23); CALCIUM LEVEL 9.3 MG/DL (8.3-10.6); CARBON DIOXIDE LEVEL 29 MMOL/L (20-31); CHLORIDE LEVEL 101 MMOL/L (98-107); CHOLESTEROL LEVEL 224 MG/DL (<200); CHOLESTEROL RISK RATIO 3.06 (<5); GLOMERULAR FILTRATION RATE > 60.0 (>45); GLUCOSE, FASTING 77 MG/DL (74-106); LDL CHOLESTEROL 127.6 MG/DL (<100); POTASSIUM SERUM 3.4 MMOL/L (3.5-5.1); SODIUM LEVEL 136 MMOL/L (136-145); TOTAL PROTEIN 7.7 G/DL (5.7-8.2); TRIGLYCERIDES LEVEL 117 MG/DL (<150)
[2023-10-06 16:59] LABS: THYROID STIMULATING HORMONE 15.658 uIU/ML (0.55-4.78); TOTAL 25(OH) VITAMIN D 6.9 NG/ML (20.0-100.0)
[2023-10-06 17:18] LABS: HEMOGLOBIN A1c 4.7 % (4.0-6.0)
== END ==
LOC: M LAB REF 16:32
PROVIDERS: ATTEND Nurse Practitioner Family
DX: E66.3 Overweight (principal); E55.9 Vitamin D deficiency, unspecified; R53.83 Other fatigue

== ENCOUNTER → 2023-10-21 | Outpatient (CLI) | payer OTHER | LOC: M SOG 07:49 | PROVIDERS: ATTEND Physician Assistant | DX: M25.561 Pain in right knee (principal); M25.562 Pain in left knee; M17.0 Bilateral primary osteoarthritis of knee ==

== ENCOUNTER 2024-05-26 14:08 | Emergency (ER) | payer OTHER ==
[~2024-05-26] VITALS: Ht 160 cm; Wt 61.4 kg
[~2024-05-26 14:08] MED LIST changes: +FLUO-365 PO; -FLUO20CA22 PO
[2024-05-26] MEDS ORDERED: GABA-1171 (14:27)
[2024-05-26 16:31] VITALS: BP 104/67; TEMP 97.7; O2SAT 91
== END 2024-05-26 18:15 | disposition left against medical advice (07) ==
LOC: M ED 14:08
DX: Z53.21 Procedure and treatment not carried out due to patient leaving prior to being seen by health care provider (principal)

== ENCOUNTER → 2024-08-24 | Outpatient (REF) | payer OTHER ==
[~2024-08-24] MED LIST changes: +GABA-1171
== END ==
LOC: M LAB REF 12:44
PROVIDERS: ATTEND Nurse Practitioner Family
DX: E03.9 Hypothyroidism, unspecified (principal)

== ENCOUNTER 2024-11-02 09:46 | Emergency (ER) | payer OTHER ==
[~2024-11-02] VITALS: Ht 157.5 cm; Wt 62.6 kg
[2024-11-02 10:26] LABS: BASO % 0.7 % (0.0-1.0); EOS % 0.5 % (0.0-3.0); HEMATOCRIT 38.8 % (36.0-47.0); HEMOGLOBIN 13.6 g/dl (12.0-15.5); LYMPH # 1.3 10^3/uL (1.5-5.0); LYMPH % 21.7 % (24.0-44.0); MEAN CORPUSCULAR HEMOGLOBIN 37.1 pg (27.0-33.0); MEAN CORPUSCULAR HGB CONC 35.1 g/dl (32.0-36.5); MEAN CORPUSCULAR VOLUME 105.7 fl (80.0-96.0); MONO # 0.5 10^3/uL (0.0-0.8); MONO % 7.6 % (2.0-8.0); NEUTROPHILS # 4.1 10^3/uL (1.5-8.5); NEUTROPHILS % 69.3 % (36.0-66.0); PLATELET COUNT, AUTOMATED 168 10^3/uL (150-450); RED BLOOD COUNT 3.67 10^6/uL (4.00-5.40); WHITE BLOOD COUNT 5.9 10^3/uL (4.0-10.0)
[2024-11-02] MEDS: ONDANSETRON 4MG 2ML VIAL IV ONE (10:36)
[2024-11-02] MEDS: OXAZEPAM 15MG CAP PO ONE (10:36)
[2024-11-02 10:50] LABS: ETHYL ALCOHOL (ETHANOL) < 0.003 % (0.000-0.010)
[2024-11-02 10:51] LABS: BLOOD UREA NITROGEN 14 MG/DL (9-23); CALCIUM LEVEL 9.1 MG/DL (8.3-10.6); CARBON DIOXIDE LEVEL 26 MMOL/L (20-31); CHLORIDE LEVEL 91 MMOL/L (98-107); CREATININE FOR GFR 0.52 MG/DL (0.55-1.30); GLOMERULAR FILTRATION RATE > 90.0 (>45); GLUCOSE, FASTING 68 MG/DL (74-106); MAGNESIUM LEVEL 1.1 MG/DL (1.8-2.4); POTASSIUM SERUM 3.7 MMOL/L (3.5-5.1); SODIUM LEVEL 133 MMOL/L (136-145)
[2024-11-02] MEDS: MAG SULF 1GM/100ML (MAG RUN) 1 GM in IV 1 EA IV ONE ×2 (11:23→12:42)
[2024-11-02] MEDS ORDERED: HumuLIN R (REGULAR) INSULIN (NovoLIN R) **100U/ML** PER UNIT IV ONE (11:35)
[2024-11-02] MEDS ORDERED: NS (Normal Saline) 0.9% 1,000 ML IV ONE (11:35)
[2024-11-02 11:56] LABS: ACETONE/KETONE 4.23 MMOL/L (0.02-0.27)
[2024-11-02 13:02] LABS: KETONE, URINE AUTO RFX 1+ mg/dL (NEGATIVE); MUCUS, URINE RFX SMALL (NEGATIVE); NITRITE, URINE AUTO RFX NEGATIVE (NEGATIVE); RBC, URINE AUTO RFX 34 /HPF (0-3); SQUAM EPITHELIAL CELL UR AURFX 3 /HPF (0-6)
[2024-11-02 13:03] LABS: LEUKOCYTE ESTERASE UR AUTO RFX 1+ (NEGATIVE); WBC, URINE AUTO RFX TNTC /HPF (0-3)
[2024-11-02] MEDS ORDERED: SLOWTAB2 PO (15:05)
[2024-11-02] MEDS: FOSFOMYCIN TROMETHAMINE 3 GM POWDER PACKET (MONUROL) PO ONE (15:14)
[2024-11-02 15:22] VITALS: BP 129/85; TEMP 98.2; O2SAT 96
== END 2024-11-02 15:46 | disposition home or self-care (01) ==
LOC: M ED 09:46 → EDBD 09:46 → M ED 15:46
DX: F10.130 Alcohol abuse with withdrawal, uncomplicated (principal); E83.42 Hypomagnesemia; N39.0 Urinary tract infection, site not specified; I10 Essential (primary) hypertension; E11.9 Type 2 diabetes mellitus without complications; E78.5 Hyperlipidemia, unspecified; F32.A Depression, unspecified; G47.30 Sleep apnea, unspecified; Z79.899 Other long term (current) drug therapy
CPT/HCPCS: 80048; 81001; 82010; 82077; 83735; 85025; 87088; 87186; 93005; 96374; 96375; 96376; 99284; J2405; J3475